=== PATIENT | male | born 1975 | race Caucasian/White ===

== ENCOUNTER 2018-07-22 14:44 | Inpatient (IN) ==
--- NOTE | 2018-07-22 16:04 | XRay Report ---
INDICATION: Flulike symptoms TECHNIQUE: AP chest x-ray,portable upright COMPARISON: None FINDINGS:Lungs are negative. No parenchymal infiltrate or mass. Size and vascularity are normal. Delores and mediastinum are negative. No pleural fluid. IMPRESSION: Negative AP chest x-ray Interpreted and Authenticated by: Harjit Aparicio 07/22/18
[2018-07-22] MEDS ORDERED: HYDROmorphone 2 MG/ML VIAL IV ONE (16:06)
[2018-07-22] MEDS ORDERED: LACTATED RINGERS 1,000 ML IV ONE ×2 (16:07→16:08)
[2018-07-22 16:11] LABS: Basophils # (Auto) 0.1 K/mcL (0.0-0.3); Basophils % (Auto) 0.8 % (0.0-2.0); Eosinophils # (Auto) 0.5 K/mcL (0.0-0.7); Eosinophils % (Auto) 3.1 % (0.0-7.0); Lymphocytes # (Auto) 3.9 K/mcL (1.5-4.8); Lymphocytes % (Auto) 24.2 % (15.5-49.0); Mean Cell Volume 86.6 fL (80.0-100.0); Mean Corpuscular HGB Conc 31.2 g/dL (31.0-36.0); Monocytes # (Auto) 1.1 K/mcL (0.1-0.9); Monocytes % (Auto) 6.9 % (1.0-12.0); Platelet Count 488 K/mcL (140-440); RBC 4.31 M/mcL (4.50-5.90); Red Cell Distribution Width 16.3 % (11.5-14.5)
[2018-07-22 16:36] LABS: ALT/SGPT 50 U/l (0-40); Albumin 3.1 gm/dL (3.2-5.2); Albumin/Globulin Ratio 0.6 (1.0-2.3); Alkaline Phosphatase 100 U/L (39-117); Blood Urea Nitrogen 27 mg/dl (6-20)
[2018-07-22] MEDS ORDERED: cefTRIAXone 1 GM VIAL IV ONE (16:39)
--- NOTE | 2018-07-22 17:19 | Emergency Department Note ---
Weakness HPI - General Chief complaint: Weakness Stated complaint: Weak, Cough and cold, tired, sore throat Time Seen by Provider: 07/22/18 14:47 Source: patient Mode of arrival: ambulatory Limitations: no limitations - History of Present Illness HPI Narrative: 43-year-old male in ED as advised from wound care. Patient had gone to wound care for weekly evaluation of his left lower extremity which is currently cast due to pressure ulcer. Patient's blood pressure was 97/55. Patient states normally he is systolic is in the 130s. Patient also had right [id number] amputation due to wound infection into the bone. Patient was placed into a care center and discharged May 2018. Patient states he did have upper respiratory infection last 2 and half weeks and excessive coughing, no temperatures, no changes in bowel and bladder. Patient states he did feel better today than he has been the last few weeks. Patient states he is getting a migraine. Patient states last time he was on antibiotics was in May. Patient does have health history PTSD, depression, anxiety, hypertension, type 2 diabetes on insulin. Onset (ago): hour(s) (1) Migration: none Severity: mild Improves with: rest Worsens with: exertion Context: recent illness Associated symptoms: Reports: headaches. Denies: confusion, diaphoresis, fever/chills, loss of appetite, nausea/vomiting, shortness of breath - Related Data Home Medications Medication Instructions Recorded Confirmed Acetaminophen [Pain Reliever] 1,000 mg PO BID 06/04/17 07/24/18 Aspirin [Lo-Dose Aspirin EC] 81 mg PO DAILY 06/04/17 07/24/18 Lactobacillus Acidophilus 0.5 mg PO DAILY 06/04/17 07/24/18 [Acidophilus Probiotic] Loratadine [Loradamed] 10 mg PO DAILYP PRN 06/04/17 07/24/18 Omeprazole [Prilosec] 40 mg PO ACB 06/04/17 07/23/18 Timolol 0.5% Ophth Drops [Timoptic 1 gtt OU BID 06/04/17 07/23/18 0.5% Ophth Drops] Vitamin D3 1,000 unit PO DAILY 06/04/17 07/24/18 albuterol sulfate HFA 90 2 puff INHALATION Q6H PRN 03/23/18 07/24/18 mcg/actuation aerosol inhaler atorvastatin 80 mg tablet 80 mg PO HS 03/23/18 07/23/18 cyclobenzaprine 10 mg tablet 10 mg PO HS tab 03/23/18 07/23/18 gabapentin 300 mg capsule 300 mg PO TID cap 03/23/18 07/23/18 insulin aspart U- 100 100 unit/mL See Rx Instructions SUB-Q .COMPLEX 03/23/18 07/23/18 subcutaneous solution lisinopril 20 mg tablet 20 mg PO QDAY 03/23/18 07/23/18 metformin 1,000 mg tablet 1,000 mg PO BIDCC tab 03/23/18 07/23/18 pioglitazone 15 mg tablet 15 mg PO QDAY 03/23/18 07/23/18 prazosin 2 mg capsule 2 mg PO HS cap 03/23/18 07/22/18 promethazine 25 mg tablet 25 mg PO Q8HP PRN tab 03/23/18 07/23/18 topiramate 100 mg tablet 100 mg PO QDAY tab 03/23/18 07/23/18 venlafaxine ER 75 mg 225 mg PO DAILY cap 03/23/18 07/23/18 capsule,extended release 24 hr fluticasone 110 mcg/actuation HFA 2 puff INHALATION BID 04/28/18 07/23/18 aerosol inhaler insulin detemir (U- 100) 100 60 unit SUB-Q BID ml 04/28/18 07/23/18 unit/mL subcutaneous solution liraglutide 0.6 mg/0.1 mL (18 mg/3 1.8 mg SUB-Q QDAY ml 04/28/18 07/23/18 mL) subcutaneous pen injector loperamide 2 mg capsule 2 mg PO Q2-4H PRN 04/28/18 07/23/18 metoclopramide 10 mg tablet 15 mg PO TIDAC tab 04/28/18 07/23/18 potassium chloride ER 10 mEq 10 meq PO QAMCC 04/28/18 07/23/18 tablet,extended release trazodone 100 mg tablet 100 mg PO QHS tab 04/28/18 07/23/18 Acetaminophen [Tylenol Arthritis] 650 mg PO Q6HP PRN 07/22/18 07/24/18 HYDROcodone/APAP 10/325MG [[place] 1 tab PO BIDP PRN 07/23/18 07/23/18 10-325Mg] Naproxen [Naprosyn] 500 mg PO BIDCC 07/23/18 07/23/18 Previous Rx's Medication Instructions Recorded Amoxicillin/Potassium Clav 875 mg PO Q12H #10 tab 07/25/18 [Augmentin] Lactobacillus [Culturelle] 1 cap PO BID #60 cap 07/25/18 Allergies Allergy/AdvReac Type Severity Reaction Status Date / Time sulfamethoxazole Allergy Mild Rash Verified 07/22/18 14:50 [From Bactrim] trimethoprim [From Bactrim] Allergy Mild Rash Verified 07/22/18 14:50 fluticasone [From Flonase] AdvReac Mild Dry Mucus Verified 07/22/18 14:50 Membranes Review of Systems All systems ED: reviewed and negative except as stated. Past Medical History - Past Medical History PMFSH Narrative: All Active Problems (Last Reviewed 04/28/18 @ 13:26 by Angélica Echols RN) Osteomyelitis (Chronic) Vitamin D deficiency (Chronic) GERD (gastroesophageal reflux disease) (Chronic) Insomnia (Chronic) Hyperlipidemia (Chronic) Hypertension (Chronic) Anemia (Chronic) Constipation (Chronic) Asthma (Chronic) Backache (Chronic) Migraine (Chronic) Seasonal allergies (Chronic) Viral syndrome (Chronic) Iron deficiency (Chronic) Anxiety (Chronic) Depressive disorder (Chronic) Chronic pain syndrome (Chronic) Otitis media (Chronic) Pharyngitis (Chronic) URI (upper respiratory infection) (Chronic) Allergic rhinitis (Chronic) Gastroparesis (Chronic) Chronic obstructive pulmonary disease (COPD) (Chronic) Abscess (Chronic) Dry skin (Chronic) Headache (Chronic) Abrasion (Chronic) Psoriasis (Chronic) Sleep apnea (Chronic) Substance abuse (Chronic) Edema (Chronic) Vitamin B12 deficiency (Chronic) Type II diabetes mellitus (Chronic) Ulceration of below knee amputation stump (Chronic) Pain in right lower leg (Chronic) S/P BKA (below knee amputation) (Chronic) Chronic ulcer of leg (Chronic) Migraine headache without aura (Chronic) Migraine (Chronic) Cellulitis of right leg (Chronic) Abscess of right lower extremity (Chronic) Hematoma (Chronic) Past Surgical History (Last Reviewed 04/28/18 @ 13:26 by Angélica Echols RN) History of cataract surgery (Chronic) History of cholecystectomy (Chronic) History of leg amputation (Chronic) Family History (Last Reviewed 04/28/18 @ 13:26 by Angélica Echols RN) Mother Cancer Diabetes Kidney disease FH: mental illness Father Heart disease Hypertension Medical history: Reports: DM (Type II, insulin using.), hypertension. Denies: cancer, CVA, myocardial infarction (Although he is uncertain and thinks maybe), thyroid disease, TIA Psychiatric history: Reports: anxiety, depression Surgical history ED: Reports: orthopedic, other (Below the knee amputation, right) - Social History smoking status: Current every day smoker Alcohol use: Reports: None Drug use: Reports: none. Denies: marijuana Physical Exam Limitations: no limitations General appearance: alert, in no apparent distress Head: atraumatic, normocephalic, normal inspection Eye: Present: normal appearance, PERRL, EOMI. Absent: conjunctival injection ENT: normal oropharynx, mucous membranes moist, TM's normal bilaterally, normal external ear exam Neck: Present: normal inspection. Absent: tenderness, lymphadenopathy Chest: Present: normal inspection, symmetric chest wall rise. Absent: te nderness Respiratory: Present: normal lung sounds bilaterally. Absent: respiratory distress, rales/crackles, wheezes Cardiovascular: Present: tachycardia. Absent: systolic murmur, diastolic murmur Abdominal: Present: soft, normal bowel sounds. Absent: distention, tenderness, guarding, rebound, rigidity Extremities: Present: other (right [id number] amputee, left leg and casts with walking boot) Neurological: Present: alert, oriented X3, CN II-XII intact Psychiatric: Present: normal affect, normal mood. Absent: depressed, agitated, anxious Skin: Present: warm, dry, intact, pallor. Absent: cyanosis, diaphoresis, erythema Course Vital Signs Temperature 97.5 F 07/22/18 14:46 Pulse Rate 112 H 07/22/18 14:46 Respiratory Rate 20 07/22/18 14:46 Blood Pressure 89/57 07/22/18 14:46 Pulse Oximetry (%) 92 07/22/18 14:46 Temperature 98.8 F 07/25/18 12:03 Pulse Rate 79 07/25/18 12:03 Respiratory Rate 18 07/25/18 12:03 Blood Pressure 132/80 07/25/18 12:03 Pulse Oximetry (%) 94 07/25/18 12:03 Weakness - MDM Narrative Medical decision making narrative: Patient is generally worked up for hypotension. Provided patient 2 L lactated Ringer's. WBC came back elevated changed into sepsis protocol. WBC 16.3 patient anemic BUN 27 creatinine 1.7 which is decreased for patient from April when it was 59/1.3. Patient AST 55, ALT 50 . Patient per calcitonin 0.39 PT/INR 14.3/ 1.1 and also provided 1 g Rocephin after blood cultures obtained. Third liter lactated Ringer's placed at 500 ml/hour. Patient's blood pressure coming up 125/74 - Lab Data Result diagrams: 07/24/18 03:21 07/25/18 03:59 Lab Results 07/22/18 07/22/18 07/22/18 Range/Units 15:23 15:28 15:28 WBC 16.3 H (4.5-11.0) K/mcL RBC 4.31 L (4.50-5.90) M/mcL Hgb 11.6 L (13.5-16.5) g/dL Hct 37.3 L (41.0-55.0) % MCV 86.6 (80.0-100.0) fL MCH 27.0 (26.0-34.0) pg MCHC 31.2 (31.0-36.0) g/dL RDW 16.3 H (11.5-14.5) % Plt Count 488 H (140-440) K/mcL MPV 8.8 (7.4-10.4) fL Gran % 65.0 (38.0-78.0) % Lymph % (Auto) 24.2 (15.5-49.0) % Merrick % (Auto) 6.9 (1.0-12.0) % Eos % (Auto) 3.1 (0.0-7.0) % Baso % (Auto) 0.8 (0.0-2.0) % Gran # 10.6 H (1.8-8.0) K/mcL Lymph # (Auto) 3.9 (1.5-4.8) K/mcL Merrick # (Auto) 1.1 H (0.1-0.9) K/mcL Eos # (Auto) 0.5 (0.0-0.7) K/mcL Baso # (Auto) 0.1 (0.0-0.3) K/mcL PT (11.9-14.5) sec INR (0.9-1.1) VBG Lactic Acid (0.5-2.0) mmol/L Sodium 136 (133-145) mmol/L Potassium 4.9 (3.3-5.1) mmol/L Chloride 102 (96-108) mmol/L Carbon Dioxide 20 L (22-30) mmol/L Anion Gap 14.0 (8-16) BUN 27 H (6-20) mg/dl Creatinine 1.7 H (0.7-1.2) mg/dl GFR Calculation 48 Glucose 205 H (70-105) mg/dL Calcium 9.1 (8.6-10.4) mg/dl Total Bilirubin 0.2 (0.0-1.0) mg/dL AST 55 H (0-37) U/l ALT 50 H (0-40) U/l Alkaline Phosphatase 100 (39-117) U/L Total Protein 8.2 (5.9-8.4) gm/dL Albumin 3.1 L (3.2-5.2) gm/dL Globulin 5.1 H (2.2-3.7) gm/dL Albumin/Globulin Ratio 0.6 L (1.0-2.3) Procalcitonin 0.39 (<0.10) ng/mL 07/22/18 07/22/18 Range/Units 15:29 17:02 WBC (4.5-11.0) K/mcL RBC (4.50-5.90) M/mcL Hgb (13.5-16.5) g/dL Hct (41.0-55.0) % MCV (80.0-100.0) fL MCH (26.0-34.0) pg MCHC (31.0-36.0) g/dL RDW (11.5-14.5) % Plt Count (140-440) K/mcL MPV (7.4-10.4) fL Gran % (38.0-78.0) % Lymph % (Auto) (15.5-49.0) % Merrick % (Auto) (1.0-12.0) % Eos % (Auto) (0.0-7.0) % Baso % (Auto) (0.0-2.0) % Gran # (1.8-8.0) K/mcL Lymph # (Auto) (1.5-4.8) K/mcL Merrick # (Auto) (0.1-0.9) K/mcL Eos # (Auto) (0.0-0.7) K/mcL Baso # (Auto) (0.0-0.3) K/mcL PT 14.3 (11.9-14.5) sec INR 1.1 (0.9-1.1) VBG Lactic Acid 3.0 H (0.5-2.0) mmol/L Sodium (133-145) mmol/L Potassium (3.3-5.1) mmol/L Chloride (96-108) mmol/L Carbon Dioxide (22-30) mmol/L Anion Gap (8-16) BUN (6-20) mg/dl Creatinine (0.7-1.2) mg/dl GFR Calculation Glucose (70-105) mg/dL Calcium (8.6-10.4) mg/dl Total Bilirubin (0.0-1.0) mg/dL AST (0-37) U/l ALT (0-40) U/l Alkaline Phosphatase (39-117) U/L Total Protein (5.9-8.4) gm/dL Albumin (3.2-5.2) gm/dL Globulin (2.2-3.7) gm/dL Albumin/Globulin Ratio (1.0-2.3) Procalcitonin (<0.10) ng/mL Disposition Pt seen by [employer]CH[employer]IC/PA only: No (Alexis) Clinical Impression: Sepsis Qualifiers: Sepsis type: sepsis due to unspecified organism Qualified Code(s): A41.9 - Sepsis, unspecified organism Disposition: Xfer As Inpt ([facility]) Condition: Fair Time of Disposition: 15:24
[2018-07-22] MEDS: LACTATED RINGERS 1,000 ML IV SCH ×2 (17:20→19:08)
[2018-07-22] MEDS ORDERED: PIPERACILLIN SODIUM/TAZOBACTAM 3.375 GM in DEXTROSE 5% IN WATER 50 ML IV ONE (17:41)
--- NOTE | 2018-07-22 18:06 | Internal Med History&Physical ---
Medical - H&P: [facility] Patient information: Note initiated : 07/22/18 at 5:57 pm Service Date, if different from initiated Date: [] Patient: Roberto Johnson a 43 y/o M admitted on for Weak, Cough and Cold, Tired, Sorethroat. Chief Complaint: [] Chief complaint: Low blood pressure/worsening wound History of present illness: Mr. Johnson is a 43 year old M with a known history of diabetes mellitus type 2, suboptimal outpatient control with extensive peripheral vascular disease/history of right leg below knee amputation and left foot diabetic wound which was placed in a cast 2 weeks ago due to underlying callus and to offload to prevent infection. He has has been undergoing wound care by Dr. Cummings for a callus. However over the last couple of weeks patient has been experiencing URI sympt oms with cough, chills, weakness and came into the ER due to excessive fatigue weakness and inability to function. He denies sick contact. He denies productive yellow sputum, sinus symptoms. Initial workup in the ER was significant for hypotension/elevated white count of 16.3 and workup consistent with a sepsis with elevated lactic acid at 3. Exact source was unclear given negative chest x-ray. Cultures were drawn and hospitalist service was consulted for evaluation. Patient received 2 L of crystalloids with resultant improvement in systolics to 100. At the time of evaluation patient is alert oriented. He is in minimal discomfort. He was able to write answers to most of the questions history as above. He denies chest pain shortness of breath but endorses a cough weakness fatigue, denies myalgia, headache photophobia, diarrhea or dysuria. Review of systems 10 point review systems was performed and is negative except was discussed above Medical - H&P: PMH Medical history: Osteomyelitis (Chronic) Right BKA stump Vitamin D deficiency (Chronic) GERD (gastroesophageal reflux disease) (Chronic) Insomnia (Chronic) Hyperlipidemia (Chronic) Hypertension (Chronic) Anemia (Chronic) Constipation (Chronic) Asthma (Chronic) Backache (Chronic) Migraine (Chronic) Seasonal allergies (Chronic) Viral syndrome (Chronic) Iron deficiency (Chronic) Anxiety (Chronic) Depressive disorder (Chronic) Chronic pain syndrome (Chronic) Otitis media (Chronic) Pharyngitis (Chronic) URI (upper respiratory infection) (Chronic) Allergic rhinitis (Chronic) Gastroparesis (Chronic) Chronic obstructive pulmonary disease (COPD) (Chronic) Abscess (Chronic) Dry skin (Chronic) Headache (Chronic) Abrasion (Chronic) Psoriasis (Chronic) Sleep apnea (Chronic) Substance abuse (Chronic) Edema (Chronic) Vitamin B12 deficiency (Chronic) Type II diabetes mellitus (Chronic) Ulceration of below knee amputation stump (Chronic) Surgical History History of cataract surgery (Chronic) History of cholecystectomy (Chronic) History of leg below knee amputation (Chronic) Right History of wisdom tooth extraction (Chronic) Family History Mother Cancer Diabetes Kidney disease FH: mental illness Father Heart disease Hypertension Social History smoking status: Former smoker quit date: 03/21/18 does not drink No history of substance abuse Medical - H&P: Meds Home Medications Medication Instructions Recorded Confirmed Type Acetaminophen [Pain Reliever] 1,000 mg PO BID 06/04/17 04/28/18 History Aspirin [Lo-Dose Aspirin EC] 81 mg PO DAILY 06/04/17 04/28/18 History Lactobacillus Acidophilus 0.5 mg PO DAILY 06/04/17 04/28/18 History [Acidophilus Probiotic] Loratadine [Loradamed] 10 mg PO 06/04/17 04/28/18 History Omeprazole [PriLOSEC] 40 mg PO ACB 06/04/17 07/23/18 History Timolol 0.5% Ophth Drops [Timoptic 1 gtt OU BID 06/04/17 07/23/18 History 0.5% Ophth Drops] Vitamin D3 1,000 unit PO DAILY 06/04/17 04/28/18 History albuterol sulfate HFA 90 2 puff INHALATION Q6H PRN 03/23/18 04/28/18 History mcg/actuation aerosol inhaler atorvastatin 80 mg tablet 80 mg PO HS 03/23/18 07/23/18 History chlorthalidone 25 mg tablet 25 mg PO QDAY 03/23/18 07/23/18 History cyclobenzaprine 10 mg tablet 10 mg PO HS tab 03/23/18 07/23/18 History gabapentin 300 mg capsule 300 mg PO TID cap 03/23/18 07/23/18 History insulin aspart U- 100 100 unit/mL See Rx Instructions SUB-Q .COMPLEX 03/23/18 07/23/18 History subcutaneous solution lisinopril 20 mg tablet 20 mg PO QDAY 03/23/18 07/23/18 History metformin 1,000 mg tablet 1,000 mg PO BIDCC tab 03/23/18 07/23/18 History pioglitazone 15 mg tablet 15 mg PO QDAY 03/23/18 07/23/18 History prazosin 2 mg capsule 2 mg PO HS cap 03/23/18 07/22/18 History promethazine 25 mg tablet 25 mg PO Q8HP PRN tab 03/23/18 07/23/18 History topiramate 100 mg tablet 100 mg PO QDAY tab 03/23/18 07/23/18 History venlafaxine ER 75 mg 225 mg PO DAILY cap 03/23/18 07/23/18 History capsule,extended release 24 hr doxycycline hyclate 100 mg capsule 100 mg PO BID #60 cap 04/08/18 07/22/18 Rx fluticasone 110 mcg/actuation HFA 2 puff INHALATION BID 04/28/18 07/23/18 History aerosol inhaler insulin detemir (U- 100) 100 60 unit SUB-Q BID ml 04/28/18 07/23/18 History unit/mL subcutaneous solution liraglutide 0.6 mg/0.1 mL (18 mg/3 1.8 mg SUB-Q QDAY ml 04/28/18 07/23/18 History mL) subcutaneous pen injector loperamide 2 mg capsule 2 mg PO Q2-4H PRN 04/28/18 07/23/18 History metoclopramide 10 mg tablet 15 mg PO TIDAC tab 04/28/18 07/23/18 History potassium chloride ER 10 mEq 10 meq PO QAMCC 04/28/18 07/23/18 History tablet,extended release trazodone 100 mg tablet 100 mg PO QHS tab 04/28/18 07/23/18 History Acetaminophen [Tylenol Arthritis] 650 mg PO Q6HP PRN 07/22/18 History HYDROcodone/APAP 10/325MG [[place] 1 tab PO BIDP PRN 07/23/18 07/23/18 History 10-325Mg] Naproxen [Naprosyn] 500 mg PO BIDCC 07/23/18 07/23/18 History Allergies Allergy/AdvReac Type Severity Reaction Status Date / Time sulfamethoxazole Allergy Mild Rash Verified 07/22/18 14:50 [From Bactrim] trimethoprim [From Bactrim] Allergy Mild Rash Verified 07/22/18 14:50 fluticasone [From Flonase] AdvReac Mild Dry Mucus Verified 07/22/18 14:50 Membranes Medical - H&P: Exam - Constitutional Vitals: Temp Pulse Resp BP Pulse Ox 97.5 F 105 H 16 125/74 90 07/22/18 14:46 07/22/18 16:23 07/22/18 16:51 07/22/18 16:51 07/22/18 16:51 General appearance: morbidly obese, no acute distress Exam: Alert oriented Head normocephalic Neck lymphadenopathy S1-S2 regular rhythm Oral cavity dry no ear nose discharge Diminished breath sounds bases Abdomen soft nontender Left BKA Right foot cast Extensive excoriation/xerosis upper and lower extremities Skin otherwise no suspicious lesion psych alert cooperative Neuro normal heart function Medical - H&P: Reslt - Labs CBC & Chem 7: 07/23/18 03:27 07/23/18 03:27 Labs: Short CBC 07/22/18 Range/Units 15:28 WBC 16.3 H (4.5-11.0) K/mcL Hgb 11.6 L (13.5-16.5) g/dL Hct 37.3 L (41.0-55.0) % Plt Count 488 H (140-440) K/mcL BMP 07/22/18 15:28 Sodium 136 Potassium 4.9 Chloride 102 Carbon Dioxide 20 L BUN 27 H Creatinine 1.7 H Glucose 205 H Calcium 9.1 Liver Function 07/22/18 Range/Units 15:28 Total Bilirubin 0.2 (0.0-1.0) mg/dL AST 55 H (0-37) U/l ALT 50 H (0-40) U/l Alkaline Phosphatase 100 (39-117) U/L Albumin 3.1 L (3.2-5.2) gm/dL Medical - H&P: A/P (1) Septic shock Current visit: Yes Status: Acute * Septic shock-exact source in question. Continue crystalloid/broad antibiotic coverage/pressors if indicated, venous lactate trending. ICU admission. * Diabetic left lower extremity cast/probable cellulitis-patient was evaluated by wound care. Consider CT to rule out deep-seated infection. * Acute renal failure-secondary to sepsis and endorgan dysfunction. Creatinine 1.7 * Insulin-dependent diabetes-continue basal prandial insulin. * Hypertension-medication on hold until septic shock resolved * COPD-continue bronchodilators * Anxiety disorder continue venlafaxine * Diabetic neuropathy continue gabapentin * Chronic pain/spasm-20 seconds appearing * History of CAD-continue aspirin/statin * Hyperlipidemia-continue statin * History of glaucoma on timolol * GERD continue PPI * DNR * Prophylaxis heparin Plan * Intensive care unit admission, high risk mortality given multiorgan dysfunction/Mower II score 17 * Consider CT lower extremity to rule out deep-seated infection * Broad antibiotic coverage * Pancultures/sepsis management guidelines/venous lactate trending/crystalloids * Wound care consult
[2018-07-22] MEDS ORDERED: NOREPINEPHRINE BITARTRATE 16 MG in 0.9 % SODIUM CHLORIDE 234 ML IV SCH (20:22)
[2018-07-22] MEDS ORDERED: 0.9 % SODIUM CHLORIDE 1,000 ML IV SCH (20:22)
[2018-07-22] MEDS ORDERED: VANCOMYCIN PER PHARMACY IV ONE (20:22)
[2018-07-22] MEDS ORDERED: ONDANSETRON 4 MG/2 ML VIAL IV PRN (20:22)
[2018-07-22] MEDS ORDERED: HYDROmorphone 2 MG/ML VIAL IV PRN (20:22)
[2018-07-22] MEDS ORDERED: DEXTROSE 31 GM ORAL.SUSP PO PRN (20:22)
[2018-07-22] MEDS ORDERED: ACETAMINOPHEN 325 MG TABLET PO PRN (20:22)
[2018-07-22] MEDS ORDERED: POTASSIUM CHLORIDE 20 MEQ PACKET PO PRN (20:22)
[2018-07-22] MEDS ORDERED: NITROGLYCERIN 0.4 MG TAB.SUBL SL PRN (20:22)
[2018-07-22] MEDS ORDERED: MAGNESIUM HYDROXIDE 30 ML ORAL.SUSP PO PRN (20:22)
[2018-07-22] MEDS ORDERED: DEXTROSE 50% 50 ML VIAL IV PRN (20:22)
[2018-07-22] MEDS ORDERED: MAGNESIUM SULFATE 2 GM/50 ML BAG IV PRN (20:22)
[2018-07-22] MEDS: VANCOMYCIN 1,500 MG in 0.9 % SODIUM CHLORIDE 500 ML IV SCH (20:58)
[2018-07-22] MEDS ORDERED: SENNOSIDES/DOCUSATE SODIUM 1 TAB TABLET PO SCH (21:00)
[2018-07-22] MEDS: DOCUSATE SODIUM 100 MG CAPSULE PO SCH (22:25)
[2018-07-22] MEDS: CYANOCOBALAMIN (VITAMIN B-12) 500 MCG TABLET PO SCH (22:25)
[2018-07-22] MEDS: INSULIN LISPRO 1 UNIT/0.01 ML UNIT SQ SCH (22:26)
[2018-07-22] MEDS: HEPARIN 5,000 UNIT/ML VIAL SQ SCH (22:26)
[2018-07-22] MEDS: 0.9 % SODIUM CHLORIDE 10 ML SYRINGE IV SCH (22:27)
[2018-07-23] MEDS: PIPERACILLIN SODIUM/TAZOBACTAM 3.375 GM in DEXTROSE 5% IN WATER 50 ML IV SCH ×5 (00:30→23:21)
[2018-07-23 05:07] LABS: Mean Cell Volume 87.8 fL (80.0-100.0); Mean Corpuscular HGB Conc 31.5 g/dL (31.0-36.0); Platelet Count 392 K/mcL (140-440); Red Cell Distribution Width 16.3 % (11.5-14.5)
[2018-07-23 05:23] LABS: ALT/SGPT 40 U/l (0-40); Albumin 2.5 gm/dL (3.2-5.2); Albumin/Globulin Ratio 0.6 (1.0-2.3); Alkaline Phosphatase 79 U/L (39-117); Bilirubin,Direct < 0.2 mg/dL (0.0-0.3); Blood Urea Nitrogen 23 mg/dl (6-20); Gamma Glutamyl Transpeptidase 71 U/L (8-61); Uric Acid 5.6 mg/dL (2.5-8.0)
[2018-07-23] MEDS: 0.9 % SODIUM CHLORIDE 10 ML SYRINGE IV SCH ×3 (05:57→22:16)
[2018-07-23] MEDS ORDERED: VANCOMYCIN PER PHARMACY IV SCH ×2 (06:15→11:07)
[2018-07-23 06:26] LABS: Appearance,Urine CLEAR; Bilirubin,Urine NEG (NEG); Color,Urine YELLOW; Glucose,Urine (UA) NEGATIVE (NEG); Leukocyte Esterase,Urine NEG /uL (NEG); Protein,Urine NEG (NEG); Urine Blood NEG mg/dL (<0.03); Urobilinogen,Urine NEG (NEG)
[2018-07-23 06:49] LABS: Anisocytosis 1+ (NONE SEEN); Band Neutrophils % 1 % (0-10); Basophils % (Manual) 1 % (0-2); Eosinophils % (Manual) 4 % (0-7); Lymphocytes % 22 % (15-49); Monocytes % (Manual) 12 % (1-12); Platelet Estimate NORMAL (NORMAL); RBC Morphology ABNORM (NORMAL); Segmented Neutrophils % 60 % (38-78)
--- NOTE | 2018-07-23 07:10 | Emergency Department Note ---
ED Note Addendum Note Addendum: I reviewed this case of Lorraine Craig EASTON. I agree with her evaluation management documentation. In particular note concern for sepsis. We discussed the need for admission
[2018-07-23] MEDS ORDERED: NOREPINEPHRINE BITARTRATE 16 MG in 0.9 % SODIUM CHLORIDE 234 ML IV PRN ×2 (07:45→11:07)
[2018-07-23] MEDS: DOCUSATE SODIUM 100 MG CAPSULE PO SCH ×2 (07:55→20:54)
[2018-07-23] MEDS ORDERED: POTASSIUM CHLORIDE 10 MEQ TABLET PO SCH (08:00)
[2018-07-23] MEDS: INSULIN LISPRO 1 UNIT/0.01 ML UNIT SQ SCH ×4 (08:12→21:46)
[2018-07-23] MEDS ORDERED: FLUTICASONE HFA 110MCG INHALER INH SCH (09:00)
[2018-07-23] MEDS ORDERED: GABAPENTIN 300 MG CAPSULE PO SCH (09:00)
[2018-07-23] MEDS ORDERED: sitaGLIPtin 100 MG TABLET PO SCH (09:00)
[2018-07-23] MEDS ORDERED: MULTIVIT,THER IRON,CA,FA & MIN 1 TABLET PO SCH (09:00)
[2018-07-23] MEDS: VANCOMYCIN 1,500 MG in 0.9 % SODIUM CHLORIDE 500 ML IV SCH (09:00)
[2018-07-23] MEDS ORDERED: ACETAMINOPHEN 1000 MG PO SCH (09:00)
[2018-07-23] MEDS ORDERED: INSULIN GLARGINE, HUMAN 1 UNIT/0.01 ML SQ SCH (09:00)
[2018-07-23] MEDS: CYANOCOBALAMIN (VITAMIN B-12) 500 MCG TABLET PO SCH ×2 (10:05→19:58)
[2018-07-23] MEDS: HEPARIN 5,000 UNIT/ML VIAL SQ SCH ×2 (10:05→20:57)
--- NOTE | 2018-07-23 11:03 | Internal Med Progress Note ---
Medical - PN: Subj Patient information: Note initiated : 07/23/18 at 11:00 am Service Date, if different from initiated Date: [] Patient: Roberto Johnson a 43 y/o M admitted on 07/22/18 for Weak, Cough and Cold, Tired, Sorethroat. Chief Complaint: [] Interval history: Mr. Johnson is a 43 year old M with a known history of diabetes mellitus type 2, suboptimal outpatient control with extensive peripheral vascular disease/history of right leg below knee amputation and left foot diabetic wound which was placed in a cast 2 weeks ago due to underlying callus and to offload to prevent infection. He has has been undergoing wound care by Dr. Cummings for a callus. However over the last couple of weeks patient has been experiencing URI symptoms with cough, chills, weakness and came into the ER due to excessive fatigue weakness and inability to function. He denies sick contact. He denies productive yellow sputum, sinus symptoms. Initial workup in the ER was significant for hypotension/elevated white count of 16.3 and workup consistent with a sepsis with elevated lactic acid at 3. Exact source was unclear given negative chest x-ray. Cultures were drawn and hospitalist service was consulted for evaluation. Patient received 2 L of crystalloids with resultant improvement in systolics to 100. At the time of evaluation patient is alert oriented. He is in minimal discomfort. He was able to write answers to most of the questions history as above. He denies chest pain shortness of breath but endorses a cough weakness fatigue, denies myalgia, headache photophobia, diarrhea or dysuria. 07/23-patient doing well this morning. No overnight events. Lactic acid improved. White count downtrending. Stable hemodynamics. Transfer to telemetry. No fever chills nausea vomiting or concerns. Did not require vasopressors. No other concerns expressed to nursing staff. - Constitutional Vitals: Vital Signs Temp Pulse Resp BP Pulse Ox 97.1 F 90 23 H 155/84 95 07/23/18 08:02 07/23/18 06:00 07/23/18 08:02 07/23/18 08:02 07/23/18 08:02 Period Temp Pulse Resp BP Sys/Love Pulse Ox Last 24 Hr 97.1 F-98.1 F 86-112 14-25 89-175/53-84 87-100 Intake and Output 07/22/18 07/23/18 07/23/18 21:59 05:59 13:59 Intake Total 3836 670 600 Output Total 1750 Balance 3836 -1080 600 Weight 252 lb Intake & Output: Intake & Output 07/22/18 07/23/18 07/23/18 21:59 05:59 13:59 Intake Total 3836 670 600 Output Total 1750 Balance 3836 -1080 600 Weight 252 lb Intake: IV 3716 550 600 Lactated Ringers 1,000 ml @ 500 3666 mls/hr IV .Q2H [facility] Rx#: [id number] Zosyn 3.375 gm In Dextrose 5% 50 50 50 in Water 50 ml @ 100 mls/hr IV Q6H [facility] Rx#:[id number] Vancomycin 1,500 mg In Sodium 500 500 Chloride 0.9% 500 ml @ 333.3 mls/hr IV Q12H [facility] Rx#: [id number] Oral 120 120 Output: Void Amount 1750 Other: Meal 2 jellos ice cream Percent of Meal Consumed 100% 100% Feeding Ability Independent Urine Color Dark Yellow Urine Odor Strong Stool Size Large Stool Color Brown Stool Consistency Soft Formed # Voids 1 1 # Bowel Movements 1 General appearance: morbidly obese Exam: Alert oriented Nonlabored breathing Chest clear No telemetry changes right BKA Left foot cast Medical - PN: Obj Da - Labs CBC & Chem 7: 07/23/18 03:27 07/23/18 03:27 Labs: Abnormal Lab Results 07/23/18 07/23/18 07/22/18 03:27 03:27 20:38 WBC 13.1 H RBC 3.70 L Hgb 10.2 L Hct 32.5 L RDW 16.3 H Plt Count Gran # [place] # (Auto) RBC Morphology Abnorm A Anisocytosis 1+ A ESR 101 H VBG Lactic Acid Carbon Dioxide 19 L BUN 23 H Creatinine 1.4 H Glucose 202 H Calcium 8.0 L Magnesium 1.4 L GGT 71 H AST ALT C-Reactive Protein Albumin 2.5 L Globulin 3.9 H Albumin/Globulin Ratio 0.6 L Triglycerides 203 H 07/22/18 07/22/18 07/22/18 20:38 17:02 15:28 WBC RBC Hgb Hct RDW Plt Count Gran # [place] # (Auto) RBC Morphology Anisocytosis ESR VBG Lactic Acid 3.0 H Carbon Dioxide 20 L BUN 27 H Creatinine 1.7 H Glucose 205 H Calcium Magnesium GGT AST 55 H ALT 50 H C-Reactive Protein 1.2 H Albumin 3.1 L Globulin 5.1 H Albumin/Globulin Ratio 0.6 L Triglycerides 07/22/18 15:28 WBC 16.3 H RBC 4.31 L Hgb 11.6 L Hct 37.3 L RDW 16.3 H Plt Count 488 H Gran # 10.6 H [place] # (Auto) 1.1 H RBC Morphology Anisocytosis ESR VBG Lactic Acid Carbon Dioxide BUN Creatinine Glucose Calcium Magnesium GGT AST ALT C-Reactive Protein Albumin Globulin Albumin/Globulin Ratio Triglycerides Meds: Medications Acetaminophen (Tylenol) 650 mg PO Q4-6HP PRN PRN Reason: PAIN/FEVER > 101 Aspirin (Aspirin) 81 mg PO DAILY [facility] Atorvastatin Calcium (Lipitor) 80 mg PO HS [facility] Cyanocobalamin (Vitamin B-12) 1,000 mcg PO BID [facility] Stop: 07/27/18 09:01 Last Admin: 07/23/18 10:05 Dose: 1,000 mcg Documented by: Cyclobenzaprine HCl (Flexeril) 10 mg PO HS [facility] Dextrose (Dextrose 50%) 0 ml IV UD PRN PRN Reason: Hypoglycemia Diagnostic Test (Pha) (Accu-Chek) 1 each FS ACHS [facility] Last Admin: 07/23/18 08:00 Dose: 1 each Documented by: Docusate Sodium (Colace) 100 mg PO BID [facility] Last Admin: 07/23/18 07:55 Dose: Not Given Documented by: Fluticasone Propionate (Flovent Hfa 110mcg) 2 puff INH BID [facility] Last Admin: 07/23/18 10:04 Dose: Not Given Documented by: Gabapentin (Neurontin) 300 mg PO TID [facility] Last Admin: 07/23/18 10:05 Dose: 300 mg Documented by: Glucose (Insta-Glucose) 15 gm PO PRN PRN PRN Reason: Hypoglycemia Heparin Sodium (Porcine) (Heparin) 5,000 unit SQ Q12 [facility] Last Admin: 07/23/18 10:05 Dose: 5,000 unit Documented by: Hydromorphone HCl (Dilaudid) 0 mg IV Q4HP PRN PRN Reason: PAIN LEVEL > 6 Last Admin: 07/22/18 21:00 Dose: 0.5 mg Documented by: Magnesium Sulfate (Magnesium Sulfate) 2 gm in 50 mls @ 50 mls/hr IV UD PRN PRN Reason: MG = or < 1.7 Last Infusion: 07/23/18 08:00 Dose: Infused Documented by: Sodium Chloride (Sodium Chloride 0.9%) 1,000 mls @ 50 mls/hr IV .Q20H [facility] Stop: 07/25/18 08:21 Last Admin: 07/22/18 20:59 Dose: 50 mls/hr Documented by: Piperacillin Sod/Tazobactam (Sod 3.375 gm/ Dextrose) 50 mls @ 100 mls/hr IV Q6H [facility] Last Infusion: 07/23/18 06:30 Dose: Infused Documented by: Vancomycin HCl 1,500 mg/ (Sodium Chloride) 500 mls @ 333.3 mls/hr IV Q12H [facility] Last Infusion: 07/23/18 10:44 Dose: Infused Documented by: Norepinephrine Bitartrate 16 (mg/ Sodium Chloride) 250 mls @ 9.38 mls/hr IV Q24HP PRN; Protocol PRN Reason: Hypotension Insulin Glargine (Lantus) 60 unit SQ BID [facility] Last Admin: 07/23/18 10:06 Dose: 60 units Documented by: Insulin Human Lispro (Humalog) 0 unit SQ [facility]; Protocol Last Admin: 07/23/18 08:12 Dose: 3 unit Documented by: Iron Carb/Multivit/[employer]/Folic Acid (Multivitamin W/Minerals) 1 tab PO DAILY [facility] Last Admin: 07/23/18 10:06 Dose: 1 tab Documented by: Magnesium Hydroxide (Milk Of Magnesia) 30 ml PO HSP PRN PRN Reason: Constipation Nitroglycerin (Nitrostat) 0.4 mg SL Q5M PRN PRN Reason: Chest Pain Ondansetron HCl (Zofran) 4 mg IV Q4-6HP PRN PRN Reason: Nausea And Vomiting Potassium Chloride (Klor-Con) 40 meq PO DAILYP PRN PRN Reason: K+ < 3.5 Potassium Chloride (Kdur) 10 meq PO BIDCC [facility] Last Admin: 07/23/18 10:06 Dose: 10 meq Documented by: Prazosin HCl (Minipress) 2 mg PO [facility] Senna/Docusate Sodium (Senna Plus Tablet) 1 tab PO [facility] Last Admin: 07/22/18 22:25 Dose: 1 tab Documented by: Sitagliptin Phosphate (Januvia) 100 mg PO DAILY [facility] Last Admin: 07/23/18 10:09 Dose: 100 mg Documented by: Sodium Chloride (Saline Flush) 10 ml IV Q8 [facility] Last Admin: 07/23/18 05:57 Dose: Not Given Documented by: Vancomycin HCl (Vancomycin Per Pharmacy) 1 order IV UD [facility] Medical - PN: A/P - Time Spent With Patient Total time spent is greater than 50% in coordination of care (as documented) at patient's floor/unit and/or counseling patient: 25 - 35 minutes (1) Septic shock Status: Acute Assessment and plan: * Septic shock-exact source still in question however dramatic response to crystalloid/antibiotics. Lactic acid normalized. Improved endorgan dysfunction. De-escalate antibiotics as indicated in the next 24-48 hours. Transfer to telemetry * Diabetic left lower extremity cast/probable cellulitis-patient was evaluated by wound care. Consider CT to rule out deep-seated infection. * Acute renal failure-secondary to sepsis and endorgan dysfunction. Creatinine 1.7 * Insulin-dependent diabetes-continue basal prandial insulin. * Hypertension-restart medications once septic shock resolved * COPD-continue bronchodilators * Anxiety disorder continue venlafaxine * Diabetic neuropathy continue gabapentin * Chronic pain/spasm-20 seconds appearing * History of CAD-continue aspirin/statin * Hyperlipidemia-continue statin * History of glaucoma on timolol * GERD continue PPI * DNR * Prophylaxis heparin Plan * Transfer to telemetry * Consider further imaging if persistent leukocytosis or signs of infection as source unclear as yet * DS plate antibiotic coverage in 24-48 hours * Await culture results Current Visit: Yes Medical - PN: Qual - VTE Deep Vein Thrombosis/Pulmonary Embolism Present on Admission: No
[2018-07-23] MEDS ORDERED: DEXTROSE 31 GM ORAL.SUSP PO PRN (11:07)
[2018-07-23] MEDS ORDERED: MAGNESIUM SULFATE 2 GM/50 ML BAG IV PRN (11:07)
[2018-07-23] MEDS ORDERED: HYDROmorphone 2 MG/ML VIAL IV PRN (11:07)
[2018-07-23] MEDS ORDERED: POTASSIUM CHLORIDE 20 MEQ PACKET PO PRN (11:07)
[2018-07-23] MEDS ORDERED: NITROGLYCERIN 0.4 MG TAB.SUBL SL PRN (11:07)
[2018-07-23] MEDS ORDERED: DEXTROSE 50% 50 ML VIAL IV PRN (11:07)
[2018-07-23] MEDS ORDERED: ACETAMINOPHEN 325 MG TABLET PO PRN (11:07)
[2018-07-23] MEDS ORDERED: MAGNESIUM HYDROXIDE 30 ML ORAL.SUSP PO PRN (11:07)
[2018-07-23] MEDS ORDERED: ONDANSETRON 4 MG/2 ML VIAL IV PRN (11:07)
[2018-07-23] MEDS: 0.9 % SODIUM CHLORIDE 1,000 ML IV SCH (11:09)
--- NOTE | 2018-07-23 13:49 | Internal Med Progress Note ---
Medical - PN: Subj Patient information: Note initiated : 07/23/18 at 1:45 pm Service Date, if different from initiated Date: [] Patient: Roberto Johnson a 43 y/o M admitted on 07/22/18 for Weak, Cough and Cold, Tired, Sorethroat. Chief Complaint: [] Interval history: Mr. Johnson is a 43 year old M with a known history of diabetes mellitus type 2, suboptimal outpatient control with extensive peripheral vascular disease/history of right leg below knee amputation and left foot diabetic wound which was placed in a cast 2 weeks ago due to underlying callus and to offload to prevent infection. He has has been undergoing wound care by Dr. Cummings for a callus. However over the last couple of weeks patient has been experiencing URI symptoms with cough, chills, weakness and came into the ER due to excessive fatigue weakness and inability to function. He denies sick contact. He denies productive yellow sputum, sinus symptoms. Initial workup in the ER was significant for hypotension/elevated white count of 16.3 and workup consistent with a sepsis with elevated lactic acid at 3. Exact source was unclear given negative chest x-ray. Cultures were drawn and hospitalist service was consulted for evaluation. Patient received 2 L of crystalloids with resultant improvement in systolics to 100. At the time of evaluation patient is alert oriented. He is in minimal discomfort. He was able to write answers to most of the questions history as above. He denies chest pain shortness of breath but endorses a cough weakness fatigue, denies myalgia, headache photophobia, diarrhea or dysuria. 07/23-patient doing well this morning. No overnight events. Lactic acid improved. White count downtrending. Stable hemodynamics. Transfer to telemetry. No fever chills nausea vomiting or concerns. Did not require vasopressors. No other concerns expressed to nursing staff. 07/24 - Constitutional Vitals: Vital Signs Temp Pulse Resp BP Pulse Ox 98.1 F 104 H 21 124/64 94 07/23/18 12:00 07/23/18 08:00 07/23/18 12:00 07/23/18 12:00 07/23/18 12:00 Period Temp Pulse Resp BP Sys/Love Pulse Ox Last 24 Hr 97.1 F-98.4 F 86-112 14-25 89-175/53-86 87-100 Intake and Output 07/22/18 07/23/18 07/23/18 21:59 05:59 13:59 Intake Total 3836 670 600 Output Total 1750 Balance 3836 -1080 600 Weight 114.305 kg Intake & Output: Intake & Output 07/22/18 07/23/18 07/23/18 21:59 05:59 13:59 Intake Total 3836 670 600 Output Total 1750 Balance 3836 -1080 600 Weight 114.305 kg Intake: IV 3716 550 600 Lactated Ringers 1,000 ml @ 500 3666 mls/hr IV .Q2H [facility] Rx#: [id number] Zosyn 3.375 gm In Dextrose 5% 50 50 50 in Water 50 ml @ 100 mls/hr IV Q6H [facility] Rx#:[id number] Vancomycin 1,500 mg In Sodium 500 500 Chloride 0.9% 500 ml @ 333.3 mls/hr IV Q12H [facility] Rx#: [id number] Oral 120 120 Output: Void Amount 1750 Other: Meal 2 jellos ice cream Percent of Meal Consumed 100% 100% Feeding Ability Independent Urine Color Dark Yellow Dark Yellow Urine Odor Strong Strong Stool Size Large Stool Color Brown Stool Consistency Soft Formed # Voids 1 1 # Bowel Movements 1 Exam: General: Alert, Awake, No acute Distress Eyes/N/T: EOMI, Head/Neck: neck supple, CV: RRR, No murmurs, Pulm: Clear b/l, no wheezing/rhonchi/rales Abd: soft, nontender, +BS x4 Ext: no clubbing/cyanosis . Right BKA, Left foot cast Neuro: Alert, no focal deficits, moves all extremities, Skin: warm/dry Medical - PN: Obj Da - Labs CBC & Chem 7: 07/23/18 03:27 07/23/18 03:27 Labs: Abnormal Lab Results 07/23/18 07/23/18 07/22/18 03:27 03:27 20:38 WBC 13.1 H RBC 3.70 L Hgb 10.2 L Hct 32.5 L RDW 16.3 H Plt Count Gran # [place] # (Auto) RBC Morphology Abnorm A Anisocytosis 1+ A ESR 101 H VBG Lactic Acid Carbon Dioxide 19 L BUN 23 H Creatinine 1.4 H Glucose 202 H Calcium 8.0 L Magnesium 1.4 L GGT 71 H AST ALT C-Reactive Protein Albumin 2.5 L Globulin 3.9 H Albumin/Globulin Ratio 0.6 L Triglycerides 203 H 07/22/18 07/22/18 07/22/18 20:38 17:02 15:28 WBC RBC Hgb Hct RDW Plt Count Gran # [place] # (Auto) RBC Morphology Anisocytosis ESR VBG Lactic Acid 3.0 H Carbon Dioxide 20 L BUN 27 H Creatinine 1.7 H Glucose 205 H Calcium Magnesium GGT AST 55 H ALT 50 H C-Reactive Protein 1.2 H Albumin 3.1 L Globulin 5.1 H Albumin/Globulin Ratio 0.6 L Triglycerides 07/22/18 15:28 WBC 16.3 H RBC 4.31 L Hgb 11.6 L Hct 37.3 L RDW 16.3 H Plt Count 488 H Gran # 10.6 H [place] # (Auto) 1.1 H RBC Morphology Anisocytosis ESR VBG Lactic Acid Carbon Dioxide BUN Creatinine Glucose Calcium Magnesium GGT AST ALT C-Reactive Protein Albumin Globulin Albumin/Globulin Ratio Triglycerides Meds: Medications Acetaminophen (Tylenol) 650 mg PO Q4-6HP PRN PRN Reason: PAIN/FEVER > 101 Aspirin (Aspirin) 81 mg PO DAILY [facility] Atorvastatin Calcium (Lipitor) 80 mg PO HS [facility] Cyanocobalamin (Vitamin B-12) 1,000 mcg PO BID [facility] Stop: 07/27/18 09:01 Cyclobenzaprine HCl (Flexeril) 10 mg PO HS [facility] Dextrose (Dextrose 50%) 0 ml IV UD PRN PRN Reason: Hypoglycemia Diagnostic Test (Pha) (Accu-Chek) 1 each FS ACHS [facility] Last Admin: 07/23/18 12:17 Dose: 1 each Documented by: Docusate Sodium (Colace) 100 mg PO BID [facility] Fluticasone Propionate (Flovent Hfa 110mcg) 2 puff INH BID [facility] Gabapentin (Neurontin) 300 mg PO TID [facility] Glucose (Insta-Glucose) 15 gm PO PRN PRN PRN Reason: Hypoglycemia Heparin Sodium (Porcine) (Heparin) 5,000 unit SQ Q12 [facility] Hydromorphone HCl (Dilaudid) 0 mg IV Q4HP PRN PRN Reason: PAIN LEVEL > 6 Magnesium Sulfate (Magnesium Sulfate) 2 gm in 50 mls @ 50 mls/hr IV UD PRN PRN Reason: MG = or < 1.7 Norepinephrine Bitartrate 16 (mg/ Sodium Chloride) 250 mls @ 9.38 mls/hr IV Q24HP PRN; Protocol PRN Reason: Hypotension Sodium Chloride (Sodium Chloride 0.9%) 1,000 mls @ 50 mls/hr IV .Q20H [facility] Stop: 07/25/18 08:21 Last Admin: 07/23/18 11:09 Dose: Not Given Documented by: Piperacillin Sod/Tazobactam (Sod 3.375 gm/ Dextrose) 50 mls @ 100 mls/hr IV Q6H [facility] Last Admin: 07/23/18 12:00 Dose: 100 mls/hr Documented by: Vancomycin HCl 1,500 mg/ (Sodium Chloride) 500 mls @ 333.3 mls/hr IV Q12H [facility] Insulin Glargine (Lantus) 60 unit SQ BID [facility] Insulin Human Lispro (Humalog) 0 unit SQ ACHS [facility]; Protocol Last Admin: 07/23/18 12:19 Dose: 3 unit Documented by: Iron Carb/Multivit/[place]/Folic Acid (Multivitamin W/Minerals) 1 tab PO DAILY [facility] Magnesium Hydroxide (Milk Of Magnesia) 30 ml PO HSP PRN PRN Reason: Constipation Nitroglycerin (Nitrostat) 0.4 mg SL Q5M PRN PRN Reason: Chest Pain Ondansetron HCl (Zofran) 4 mg IV Q4-6HP PRN PRN Reason: Nausea And Vomiting Potassium Chloride (Klor-Con) 40 meq PO DAILYP PRN PRN Reason: K+ < 3.5 Potassium Chloride (Kdur) 10 meq PO BIDCC [facility] Prazosin HCl (Minipress) 2 mg PO HS [facility] Senna/Docusate Sodium (Senna Plus Tablet) 1 tab PO HS [facility] Sitagliptin Phosphate (Januvia) 100 mg PO DAILY [facility] Sodium Chloride (Saline Flush) 10 ml IV Q8 [facility] Last Admin: 07/23/18 12:11 Dose: 10 ml Documented by: Vancomycin HCl (Vancomycin Per Pharmacy) 1 order IV UD [facility] Medical - PN: A/P - Time Spent With Patient Total time spent is greater than 50% in coordination of care (as documented) at patient's floor/unit and/or counseling patient: - Narrative A/P Narrative: A: *Septic shock: exact source still in question however dramatic response to crystalloid/antibiotics -Lactic acid normalized, leukocytosis improving, afebrile, PCT improving -Improved end-organ dysfunction *Diabetic left lower extremity cast/probable cellulitis: patient was evaluated by wound care. *Acute renal failure: secondary to sepsis and end-organ dysfunction -improving *Insulin-dependent diabetes- *Hypertension: *COPD: continue bronchodilators *Anxiety disorder: continue venlafaxine *Diabetic neuropathy: continue gabapentin *Chronic pain/spasm-20 seconds appearing *History of CAD:continue aspirin/statin *Hyperlipidemia: *History of glaucoma on timolol *GERD: continue PPI Plan: -seen by wound care -Transfer to telemetry -Consider further imaging if persistent leukocytosis or signs of infection as source unclear as yet; Consider CT foot to rule out deep-seated infection -deescalate antibiotic coverage in 24-48 hours -Await culture results -restart medications once septic shock resolved -cont cardiac meds -basal and SSI -ppx: heparin No Code Medical - PN: Qual - VTE Deep Vein Thrombosis/Pulmonary Embolism Present on Admission: No
[2018-07-23] MEDS: GABAPENTIN 300 MG CAPSULE PO SCH ×3 (15:47→19:59)
[2018-07-23] MEDS: POTASSIUM CHLORIDE 10 MEQ TABLET PO SCH (17:32)
[2018-07-23] MEDS ORDERED: CYCLOBENZAPRINE 10 MG TABLET PO SCH ×2 (21:00)
[2018-07-23] MEDS ORDERED: PRAZOSIN 1 MG CAPSULE PO SCH ×2 (21:00)
[2018-07-23] MEDS ORDERED: SENNOSIDES/DOCUSATE SODIUM 1 TAB TABLET PO SCH (21:00)
[2018-07-23] MEDS ORDERED: ATORVASTATIN 20 MG TABLET PO SCH ×2 (21:00)
[2018-07-23] MEDS ORDERED: VANCOMYCIN 1,500 MG in 0.9 % SODIUM CHLORIDE 500 ML IV SCH (21:00)
[2018-07-23] MEDS ORDERED: BUTALB/ACETAMINOPHEN/CAFFEINE 1 TABLET PO ONE (21:10)
[2018-07-23] MEDS ORDERED: NAPROXEN 250 MG TABLET PO PRN (21:11)
[2018-07-23] MEDS: INSULIN GLARGINE, HUMAN 1 UNIT/0.01 ML SQ SCH (21:46)
[2018-07-23] MEDS: FLUTICASONE HFA 110MCG INHALER INH SCH (21:46)
[2018-07-24] MEDS: 0.9 % SODIUM CHLORIDE 1,000 ML IV SCH ×2 (02:44→07:38)
[2018-07-24 05:22] LABS: Mean Cell Volume 86.9 fL (80.0-100.0); Mean Corpuscular HGB Conc 31.8 g/dL (31.0-36.0); Platelet Count 392 K/mcL (140-440); RBC 3.83 M/mcL (4.50-5.90); Red Cell Distribution Width 16.2 % (11.5-14.5)
[2018-07-24] MEDS: PIPERACILLIN SODIUM/TAZOBACTAM 3.375 GM in DEXTROSE 5% IN WATER 50 ML IV SCH ×4 (05:25→23:44)
[2018-07-24] MEDS: 0.9 % SODIUM CHLORIDE 10 ML SYRINGE IV SCH ×4 (05:26→20:42)
[2018-07-24 05:42] LABS: ALT/SGPT 39 U/l (0-40); Albumin 2.9 gm/dL (3.2-5.2); Albumin/Globulin Ratio 0.7 (1.0-2.3); Alkaline Phosphatase 79 U/L (39-117); Bilirubin,Direct < 0.2 mg/dL (0.0-0.3); Blood Urea Nitrogen 15 mg/dl (6-20); Gamma Glutamyl Transpeptidase 77 U/L (8-61); Uric Acid 4.4 mg/dL (2.5-8.0)
--- NOTE | 2018-07-24 07:23 | Internal Med Progress Note ---
Medical - PN: Subj Patient information: Note initiated : 07/24/18 at 7:17 am Service Date, if different from initiated Date: [] Patient: Roberto Johnson a 43 y/o M admitted on 07/22/18 for Weak, Cough and Cold, Tired, Sorethroat. Chief Complaint: [] Interval history: Mr. Johnson is a 43 year old M with a known history of diabetes mellitus type 2, suboptimal outpatient control with extensive peripheral vascular disease/history of right leg below knee amputation and left foot diabetic wound which was placed in a cast 2 weeks ago due to underlying callus and to offload to prevent infection. He has has been undergoing wound care by Dr. Cummings for a callus. However over the last couple of weeks patient has been experiencing URI symptoms with cough, chills, weakness and came into the ER due to excessive fatigue weakness and inability to function. He denies sick contact. He denies productive yellow sputum, sinus symptoms. Initial workup in the ER was significant for hypotension/elevated white count of 16.3 and workup consistent with a sepsis with elevated lactic acid at 3. Exact source was unclear given negative chest x-ray. Cultures were drawn and hospitalist service was consulted for evaluation. Patient received 2 L of crystalloids with resultant improvement in systolics to 100. At the time of evaluation patient is alert oriented. He is in minimal discomfort. He was able to write answers to most of the questions history as above. He denies chest pain shortness of breath but endorses a cough weakness fatigue, denies myalgia, headache photophobia, diarrhea or dysuria. 07/23-patient doing well this morning. No overnight events. Lactic acid improved. White count downtrending. Stable hemodynamics. Transfer to telemetry. No fever chills nausea vomiting or concerns. Did not require vasopressors. No other concerns expressed to nursing staff. 07/24 Left well. Feeling much better. More energy. No fevers or chills. - Constitutional Vitals: Vital Signs Temp Pulse Resp BP Pulse Ox 97.0 F 104 H 23 H 121/65 96 07/24/18 04:05 07/23/18 08:00 07/24/18 04:05 07/24/18 04:05 07/24/18 04:05 Period Temp Pulse Resp BP Sys/Love Pulse Ox Last 24 Hr 97.0 F-99.0 F 104 14-29 106-175/52-86 93-97 Intake and Output 07/23/18 07/24/18 07/24/18 21:59 05:59 13:59 Intake Total 290 1550 Output Total 1150 1450 Balance -860 100 Weight 109.543 kg Intake & Output: Intake & Output 07/23/18 07/24/18 07/24/18 21:59 05:59 13:59 Intake Total 290 1550 Output Total 1150 1450 Balance -860 100 Weight 109.543 kg Intake: IV 50 1550 Zosyn 3.375 gm In Dextrose 5% 50 50 in Water 50 ml @ 100 mls/hr IV Q6H [facility] Rx#:[id number] Vancomycin 1,500 mg In Sodium 500 Chloride 0.9% 500 ml @ 333.3 mls/hr IV Q12H [facility]ANESSA Rx#: [id number] Oral 240 Output: Void Amount 1150 1450 Other: Meal Dinner snack Percent of Meal Consumed 75% 100% Feeding Ability Assist with Tray Set Up Independent Urine Appearance Cloudy Urine Color Light Agueda Stool Size Moderate Small Stool Color Brown Brown Stool Consistency Soft Formed Formed Exam: General: Alert, Awake, No acute Distress Eyes/N/T: EOMI, Head/Neck: neck supple, CV: RRR, No murmurs, Pulm: Clear b/l, no wheezing/rhonchi/rales Abd: soft, nontender, +BS x4 Ext: no clubbing/cyanosis. Right BKA, Left foot in cast Neuro: Alert, no focal deficits, moves all extremities, Skin: warm/dry Medical - PN: Obj Da - Labs CBC & Chem 7: 07/24/18 03:21 07/24/18 03:21 Labs: Abnormal Lab Results 07/24/18 07/24/18 07/24/18 03:21 03:21 03:21 WBC RBC 3.83 L Hgb 10.6 L Hct 33.3 L RDW 16.2 H Plt Count Gran # [place] # (Auto) RBC Morphology Anisocytosis ESR VBG Lactic Acid Chloride 111 H Carbon Dioxide 21 L BUN Creatinine 1.3 H Glucose 210 H Calcium Phosphorus 2.5 L Magnesium GGT 77 H AST ALT C-Reactive Protein 1.0 H Albumin 2.9 L Globulin 4.1 H Albumin/Globulin Ratio 0.7 L Triglycerides 221 H 07/23/18 07/23/18 07/22/18 03:27 03:27 20:38 WBC 13.1 H RBC 3.70 L Hgb 10.2 L Hct 32.5 L RDW 16.3 H Plt Count Gran # [place] # (Auto) RBC Morphology Abnorm A Anisocytosis 1+ A ESR 101 H VBG Lactic Acid Chloride Carbon Dioxide 19 L BUN 23 H Creatinine 1.4 H Glucose 202 H Calcium 8.0 L Phosphorus Magnesium 1.4 L GGT 71 H AST ALT C-Reactive Protein Albumin 2.5 L Globulin 3.9 H Albumin/Globulin Ratio 0.6 L Triglycerides 203 H 07/22/18 07/22/18 07/22/18 20:38 17:02 15:28 WBC RBC Hgb Hct RDW Plt Count Gran # [place] # (Auto) RBC Morphology Anisocytosis ESR VBG Lactic Acid 3.0 H Chloride Carbon Dioxide 20 L BUN 27 H Creatinine 1.7 H Glucose 205 H Calcium Phosphorus Magnesium GGT AST 55 H ALT 50 H C-Reactive Protein 1.2 H Albumin 3.1 L Globulin 5.1 H Albumin/Globulin Ratio 0.6 L Triglycerides 07/22/18 15:28 WBC 16.3 H RBC 4.31 L Hgb 11.6 L Hct 37.3 L RDW 16.3 H Plt Count 488 H Gran # 10.6 H [place] # (Auto) 1.1 H RBC Morphology Anisocytosis ESR VBG Lactic Acid Chloride Carbon Dioxide BUN Creatinine Glucose Calcium Phosphorus Magnesium GGT AST ALT C-Reactive Protein Albumin Globulin Albumin/Globulin Ratio Triglycerides Meds: Medications Acetaminophen (Tylenol) 650 mg PO Q4-6HP PRN PRN Reason: PAIN/FEVER > 101 Last Admin: 07/23/18 19:58 Dose: 650 mg Documented by: Aspirin (Aspirin) 81 mg PO DAILY [facility] Atorvastatin Calcium (Lipitor) 80 mg PO HS [facility] Last Admin: 07/23/18 19:59 Dose: 80 mg Documented by: Cyanocobalamin (Vitamin B-12) 1,000 mcg PO BID [facility] Stop: 07/27/18 09:01 Last Admin: 07/23/18 19:58 Dose: 1,000 mcg Documented by: Cyclobenzaprine HCl (Flexeril) 10 mg PO HS [facility] Last Admin: 07/23/18 19:59 Dose: 10 mg Documented by: Dextrose (Dextrose 50%) 0 ml IV UD PRN PRN Reason: Hypoglycemia Diagnostic Test (Pha) (Accu-Chek) 1 each FS ACHS [facility] Last Admin: 07/23/18 21:15 Dose: 1 each Documented by: Docusate Sodium (Colace) 100 mg PO BID [facility] Last Admin: 07/23/18 20:54 Dose: Not Given Documented by: Fluticasone Propionate (Flovent Hfa 110mcg) 2 puff INH BID [facility] Last Admin: 07/23/18 21:46 Dose: Not Given Documented by: Gabapentin (Neurontin) 300 mg PO TID [facility] Last Admin: 07/23/18 19:59 Dose: 300 mg Documented by: Glucose (Insta-Glucose) 15 gm PO PRN PRN PRN Reason: Hypoglycemia Heparin Sodium (Porcine) (Heparin) 5,000 unit SQ Q12 [facility] Last Admin: 07/23/18 20:57 Dose: 5,000 unit Documented by: Hydromorphone HCl (Dilaudid) 0 mg IV Q4HP PRN PRN Reason: PAIN LEVEL > 6 Last Admin: 07/24/18 00:35 Dose: 0.25 mg Documented by: Magnesium Sulfate (Magnesium Sulfate) 2 gm in 50 mls @ 50 mls/hr IV UD PRN PRN Reason: MG = or < 1.7 Norepinephrine Bitartrate 16 (mg/ Sodium Chloride) 250 mls @ 9.38 mls/hr IV Q24HP PRN; Protocol PRN Reason: Hypotension Sodium Chloride (Sodium Chloride 0.9%) 1,000 mls @ 50 mls/hr IV .Q20H [facility] Stop: 07/25/18 08:21 Last Admin: 07/24/18 02:44 Dose: 50 mls/hr Documented by: Piperacillin Sod/Tazobactam (Sod 3.375 gm/ Dextrose) 50 mls @ 100 mls/hr IV Q6H [facility] Last Admin: 07/24/18 05:25 Dose: 100 mls/hr Documented by: Vancomycin HCl 1,500 mg/ (Sodium Chloride) 500 mls @ 333.3 mls/hr IV Q12H [facility] Last Infusion: 07/23/18 23:08 Dose: Infused Documented by: Insulin Glargine (Lantus) 60 unit SQ BID [facility] Last Admin: 07/23/18 21:46 Dose: 60 unit Documented by: Insulin Human Lispro (Humalog) 0 unit SQ ACHS [facility]; Protocol Last Admin: 07/23/18 21:46 Dose: 3 unit Documented by: Iron Carb/Multivit/Edmund/Folic Acid (Multivitamin W/Minerals) 1 tab PO DAILY [facility] Magnesium Hydroxide (Milk Of Magnesia) 30 ml PO HSP PRN PRN Reason: Constipation Naproxen (Naprosyn) 500 mg PO BIDCC PRN PRN Reason: Headache Nitroglycerin (Nitrostat) 0.4 mg SL Q5M PRN PRN Reason: Chest Pain Ondansetron HCl (Zofran) 4 mg IV Q4-6HP PRN PRN Reason: Nausea And Vomiting Potassium Chloride (Klor-Con) 40 meq PO DAILYP PRN PRN Reason: K+ < 3.5 Potassium Chloride (Kdur) 10 meq PO BIDCC [facility] Last Admin: 07/23/18 17:32 Dose: 10 meq Documented by: Prazosin HCl (Minipress) 2 mg PO [facility] Last Admin: 07/23/18 19:59 Dose: 2 mg Documented by: Senna/Docusate Sodium (Senna Plus Tablet) 1 tab PO [facility] Last Admin: 07/23/18 20:54 Dose: Not Given Documented by: Sitagliptin Phosphate (Januvia) 100 mg PO DAILY [facility] Sodium Chloride (Saline Flush) 10 ml IV Q8 [facility] Last Admin: 07/24/18 05:26 Dose: 10 ml Documented by: Vancomycin HCl (Vancomycin Per Pharmacy) 1 order IV UD [facility] Medical - PN: A/P - Time Spent With Patient Total time spent is greater than 50% in coordination of care (as documented) at patient's floor/unit and/or counseling patient: - Narrative A/P Narrative: A: *Septic shock: exact source still in question however dramatic response to crystalloid/antibiotics -Lactic acid normalized, leukocytosis resolved, afebrile, PCT improving -Improved end-organ dysfunction *Diabetic ulcer LLE placed in cast 2wks ago to offload: -follows with wound care -unable to assess wound given cast *PARAS on CKD II:: secondary to sepsis and end-organ dysfunction -improving *Insulin-dependent diabetes *Hypertension: *COPD( ): continue bronchodilators *Anxiety disorder: continue venlafaxine *Diabetic neuropathy: continue gabapentin *Chronic pain/spasm-20 seconds appearing *History of CAD: continue aspirin/statin *Hyperlipidemia: *History of glaucoma on timolol *GERD: continue PPI Plan: -IVF's d/c -seen by wound care surgeon, who will remove cast after the weekend. -MRI to LE to evaluate for osteo given high ESR and no other source of infection -deescalate antibiotic coverage in 24-48 hours -Await culture results -restart medications once septic shock resolved , clarify home meds -cont cardiac meds -basal and SSI -ppx: heparin No Code Medical - PN: Qual - VTE Deep Vein Thrombosis/Pulmonary Embolism Present on Admission: No
[2018-07-24 07:38] LABS: Anisocytosis 1+ (NONE SEEN); Band Neutrophils % 2 % (0-10); Eosinophils % (Manual) 6 % (0-7); Lymphocytes % 27 % (15-49); Monocytes % (Manual) 2 % (1-12); Platelet Estimate NORMAL (NORMAL); RBC Morphology ABNORM (NORMAL); Segmented Neutrophils % 63 % (38-78)
[2018-07-24] MEDS: INSULIN LISPRO 1 UNIT/0.01 ML UNIT SQ SCH ×4 (07:47→20:42)
[2018-07-24] MEDS: INSULIN GLARGINE, HUMAN 1 UNIT/0.01 ML SQ SCH ×2 (07:47→20:41)
[2018-07-24] MEDS: HEPARIN 5,000 UNIT/ML VIAL SQ SCH ×2 (07:48→20:28)
[2018-07-24] MEDS: GABAPENTIN 300 MG CAPSULE PO SCH ×3 (07:48→20:28)
[2018-07-24] MEDS: CYANOCOBALAMIN (VITAMIN B-12) 500 MCG TABLET PO SCH ×2 (07:49→20:27)
[2018-07-24] MEDS: FLUTICASONE HFA 110MCG INHALER INH SCH ×2 (07:49→20:27)
[2018-07-24] MEDS: DOCUSATE SODIUM 100 MG CAPSULE PO SCH ×2 (07:49→20:28)
[2018-07-24] MEDS: POTASSIUM CHLORIDE 10 MEQ TABLET PO SCH ×2 (07:49→17:39)
[2018-07-24] MEDS ORDERED: sitaGLIPtin 100 MG TABLET PO SCH (09:00)
[2018-07-24] MEDS ORDERED: MULTIVIT,THER IRON,CA,FA & MIN 1 TABLET PO SCH (09:00)
[2018-07-24] MEDS ORDERED: ASPIRIN 81 MG TAB.CHEW PO SCH ×2 (09:00)
--- NOTE | 2018-07-24 12:02 | General Surgery Consult Note ---
History of Present Illness Patient information: Note initiated : 07/24/18 at 11:56 am Service Date, if different from initiated Date: [] Patient: Roberto Johnson 43 y/o M admitted on 07/22/18 for Weak, Cough and Cold, Tired, Sorethroat. Chief Complaint: [] Consult date: 07/23/18 Requesting physician: Morales Tai History of present illness: I saw this patient on 07/23/2018 along with Kamla ICU nurse and reassessed him again this morning 07/24 2018. Patient was admitted to the hospital via emergency room after being evaluated in the wound care clinic earlier. He is an established patient of the wound care clinic for several months. Insulin-dependent diabetic, chronic smoker and status post right below-knee amputation and left second great toe amputation wi th a neuropathic ulcer on the plantar aspect of the fifth toe. This is being offloaded with a total contact cast. Mainly this has a dry base and a periwound callus. On the day of admission, patient had the tachypnea, tachycardia and low blood pressure in the wound care clinic. The right BKA stump and the left foot toes themselves were unremarkable. The right BKA stump and the left foot did not appear to be the source of his immediate symptoms. Subsequently, patient was evaluated in the ER and admitted to the hospital. Currently, his hemodynamic instability has resolved. He has responded very well to intravenous fluid administration and supportive care along with empiric antibiotics. Now at his baseline status. . Medications and Allergies Home Medications Medication Instructions Recorded Confirmed Type Acetaminophen [Pain Reliever] 1,000 mg PO BID 06/04/17 04/28/18 History Aspirin [Lo-Dose Aspirin EC] 81 mg PO DAILY 06/04/17 04/28/18 History Lactobacillus Acidophilus 0.5 mg PO DAILY 06/04/17 04/28/18 History [Acidophilus Probiotic] Loratadine [Loradamed] 10 mg PO 06/04/17 04/28/18 History Omeprazole [PriLOSEC] 40 mg PO ACB 06/04/17 07/23/18 History Timolol 0.5% Ophth Drops [Timoptic 1 gtt OU BID 06/04/17 07/23/18 History 0.5% Ophth Drops] Vitamin D3 1,000 unit PO DAILY 06/04/17 04/28/18 History albuterol sulfate HFA 90 2 puff INHALATION Q6H PRN 03/23/18 04/28/18 History mcg/actuation aerosol inhaler atorvastatin 80 mg tablet 80 mg PO HS 03/23/18 07/23/18 History chlorthalidone 25 mg tablet 25 mg PO QDAY 03/23/18 07/23/18 History cyclobenzaprine 10 mg tablet 10 mg PO HS tab 03/23/18 07/23/18 History gabapentin 300 mg capsule 300 mg PO TID cap 03/23/18 07/23/18 History insulin aspart U- 100 100 unit/mL See Rx Instructions SUB-Q .COMPLEX 03/23/18 07/23/18 History subcutaneous solution lisinopril 20 mg tablet 20 mg PO QDAY 03/23/18 07/23/18 History metformin 1,000 mg tablet 1,000 mg PO BIDCC tab 03/23/18 07/23/18 History pioglitazone 15 mg tablet 15 mg PO QDAY 03/23/18 07/23/18 History prazosin 2 mg capsule 2 mg PO HS cap 03/23/18 07/22/18 History promethazine 25 mg tablet 25 mg PO Q8HP PRN tab 03/23/18 07/23/18 History topiramate 100 mg tablet 100 mg PO QDAY tab 03/23/18 07/23/18 History venlafaxine ER 75 mg 225 mg PO DAILY cap 03/23/18 07/23/18 History capsule,extended release 24 hr doxycycline hyclate 100 mg capsule 100 mg PO BID #60 cap 04/08/18 07/22/18 Rx fluticasone 110 mcg/actuation HFA 2 puff INHALATION BID 04/28/18 07/23/18 History aerosol inhaler insulin detemir (U- 100) 100 60 unit SUB-Q BID ml 04/28/18 07/23/18 History unit/mL subcutaneous solution liraglutide 0.6 mg/0.1 mL (18 mg/3 1.8 mg SUB-Q QDAY ml 04/28/18 07/23/18 History mL) subcutaneous pen injector loperamide 2 mg capsule 2 mg PO Q2-4H PRN 04/28/18 07/23/18 History metoclopramide 10 mg tablet 15 mg PO TIDAC tab 04/28/18 07/23/18 History potassium chloride ER 10 mEq 10 meq PO QAMCC 04/28/18 07/23/18 History tablet,extended release trazodone 100 mg tablet 100 mg PO QHS tab 04/28/18 07/23/18 History Acetaminophen [Tylenol Arthritis] 650 mg PO Q6HP PRN 07/22/18 History HYDROcodone/APAP 10/325MG [[place] 1 tab PO BIDP PRN 07/23/18 07/23/18 History 10-325Mg] Naproxen [Naprosyn] 500 mg PO BIDCC 07/23/18 07/23/18 History Allergies Allergy/AdvReac Type Severity Reaction Status Date / Time sulfamethoxazole Allergy Mild Rash Verified 07/22/18 14:50 [From Bactrim] trimethoprim [From Bactrim] Allergy Mild Rash Verified 07/22/18 14:50 fluticasone [From Flonase] AdvReac Mild Dry Mucus Verified 07/22/18 14:50 Membranes Exam Temp Pulse Resp BP Pulse Ox 97.0 F 104 H 23 H 121/65 96 07/24/18 04:05 07/23/18 08:00 07/24/18 04:05 07/24/18 04:05 07/24/18 04:05 - General physical appearance well developed, well nourished, no distress, no pain - Eyes PERRL, normal ocular movement - ENT normal pinna, normal nares, normal mucosa, no congestion - Head Head exam IM: Present: atraumatic, normal inspection, normocephalic - Neck no masses, no bruits, no venous distension - Cardiovascular Cardiovascular exam IM: Present: normal rate and rhythm, tachycardia (tachycardia improved.) - Respiratory normal respiratory effort, clear to auscultation - Abdomen Abdomen: Present: soft, non tender, bowel sounds - Integumentary Present: other (dressings right BKA stump clean dry and intact. Toes left foot clean by and intact. Left TCC is intact.) - Neurologic Present: other (nonfocal unremarkable neurological examination. No interval changes.) - Musculoskeletal Present: other (Mainly wheelchair bound. Right BKA and left first toe amputation.) - Psychiatric Present: oriented to time, oriented to person, oriented to place, speech is normal Results - Labs 07/24/18 03:21 07/24/18 03:21 Abnormal lab results 02/07/24/18 07/24/18 Range/Units 03:21 03:21 03:21 RBC 3.83 L (4.50-5.90) M/mcL Hgb 10.6 L (13.5-16.5) g/dL Hct 33.3 L (41.0-55.0) % RDW 16.2 H (11.5-14.5) % RBC Morphology Abnorm A (NORMAL) Anisocytosis 1+ A (NONE SEEN) ESR 107 H (0-15) mm/hr Chloride 111 H (96-108) mmol/L Carbon Dioxide 21 L (22-30) mmol/L Creatinine 1.3 H (0.7-1.2) mg/dl Glucose 210 H (70-105) mg/dL Phosphorus 2.5 L (2.7-4.5) mg/dL GGT 77 H (8-61) U/L C-Reactive Protein (0.0-0.8) mg/dl Albumin 2.9 L (3.2-5.2) gm/dL Globulin 4.1 H (2.2-3.7) gm/dL Albumin/Globulin Ratio 0.7 L (1.0-2.3) Triglycerides 221 H (<150) mg/dl Vancomycin Trough ug/mL 07/24/18 07/24/18 Range/Units 03:21 07:57 RBC (4.50-5.90) M/mcL Hgb (13.5-16.5) g/dL Hct (41.0-55.0) % RDW (11.5-14.5) % RBC Morphology (NORMAL) Anisocytosis (NONE SEEN) ESR (0-15) mm/hr Chloride (96-108) mmol/L Carbon Dioxide (22-30) mmol/L Creatinine (0.7-1.2) mg/dl Glucose (70-105) mg/dL Phosphorus (2.7-4.5) mg/dL GGT (8-61) U/L C-Reactive Protein 1.0 H (0.0-0.8) mg/dl Albumin (3.2-5.2) gm/dL Globulin (2.2-3.7) gm/dL Albumin/Globulin Ratio (1.0-2.3) Triglycerides (<150) mg/dl Vancomycin Trough 32.8 H* ug/mL Diabetes panel 07/24/18 Range/Units 03:21 Sodium 143 (133-145) mmol/L Potassium 4.3 (3.3-5.1) mmol/L Chloride 111 H (96-108) mmol/L Carbon Dioxide 21 L (22-30) mmol/L BUN 15 (6-20) mg/dl Creatinine 1.3 H (0.7-1.2) mg/dl Glucose 210 H (70-105) mg/dL Calcium 8.7 (8.6-10.4) mg/dl AST 31 (0-37) U/l ALT 39 (0-40) U/l Alkaline Phosphatase 79 (39-117) U/L Total Protein 7.0 (5.9-8.4) gm/dL Albumin 2.9 L (3.2-5.2) gm/dL Triglycerides 221 H (<150) mg/dl Calcium panel 07/24/18 Range/Units 03:21 Calcium 8.7 (8.6-10.4) mg/dl Phosphorus 2.5 L (2.7-4.5) mg/dL Albumin 2.9 L (3.2-5.2) gm/dL Pituitary panel 07/24/18 Range/Units 03:21 Sodium 143 (133-145) mmol/L Potassium 4.3 (3.3-5.1) mmol/L Chloride 111 H (96-108) mmol/L Carbon Dioxide 21 L (22-30) mmol/L BUN 15 (6-20) mg/dl Creatinine 1.3 H (0.7-1.2) mg/dl Glucose 210 H (70-105) mg/dL Calcium 8.7 (8.6-10.4) mg/dl Adrenal panel 07/24/18 Range/Units 03:21 Sodium 143 (133-145) mmol/L Potassium 4.3 (3.3-5.1) mmol/L Chloride 111 H (96-108) mmol/L Carbon Dioxide 21 L (22-30) mmol/L BUN 15 (6-20) mg/dl Creatinine 1.3 H (0.7-1.2) mg/dl Glucose 210 H (70-105) mg/dL Calcium 8.7 (8.6-10.4) mg/dl Total Bilirubin 0.2 (0.0-1.0) mg/dL AST 31 (0-37) U/l ALT 39 (0-40) U/l Alkaline Phosphatase 79 (39-117) U/L Total Protein 7.0 (5.9-8.4) gm/dL Albumin 2.9 L (3.2-5.2) gm/dL All other labs normal. Assessment and Plan (1) Wounds and injuries Assessment: Trophic ulceration inferior aspect right BKA. This is an epidermal ulceration. No evidence of acute infection. Local wound care and protective dressings. Left foot topical antimicrobial long-acting dressings in place and reinforced with total contact cast. Toes are warm and dry. TCC is clean and there is no evidence of active inflammation or infection. Plan: Continue current treatment. Anticipate that he'll be discharged in the near future and will follow up with the wound care center. Status: Chronic Priority: Low (2) Septic shock Status: Chronic Priority: Low
[2018-07-24] MEDS ORDERED: ONDANSETRON 4 MG/2 ML VIAL IV PRN (13:09)
[2018-07-24] MEDS ORDERED: NITROGLYCERIN 0.4 MG TAB.SUBL SL PRN (13:09)
[2018-07-24] MEDS ORDERED: DEXTROSE 31 GM ORAL.SUSP PO PRN (13:09)
[2018-07-24] MEDS ORDERED: MAGNESIUM SULFATE 2 GM/50 ML BAG IV PRN (13:09)
[2018-07-24] MEDS ORDERED: MAGNESIUM HYDROXIDE 30 ML ORAL.SUSP PO PRN (13:09)
[2018-07-24] MEDS ORDERED: VANCOMYCIN PER PHARMACY IV SCH (13:09)
[2018-07-24] MEDS ORDERED: ACETAMINOPHEN 325 MG TABLET PO PRN (13:09)
[2018-07-24] MEDS ORDERED: HYDROmorphone 2 MG/ML VIAL IV PRN (13:09)
[2018-07-24] MEDS ORDERED: DEXTROSE 50% 50 ML VIAL IV PRN (13:09)
[2018-07-24] MEDS ORDERED: NAPROXEN 250 MG TABLET PO PRN (13:09)
[2018-07-24] MEDS ORDERED: POTASSIUM CHLORIDE 20 MEQ PACKET PO PRN (13:09)
--- NOTE | 2018-07-24 16:02 | Magnetic Resonance Report ---
CLINICAL INFORMATION: Nonhealing wound at the base of the fourth digit TECHNIQUE: Sagittal, axial, coronal images of the left foot. Patient had a cast in place and we were unable to use the foot coil. Examination is suboptimal. COMPARISON: None. FINDINGS: Previous transmetatarsal amputation of the left first digit. Hammertoe deformities of the second through fifth digits No definite bone marrow edema or cortical destruction. No definite evidence for osteomyelitis. This examination is considered suboptimal and of decreased sensitivity. If clinically indicated follow-up examination may be of benefit. Metatarsals and tarsal bones are negative. There is a small focus of bone marrow edema in the plantar aspects of the calcaneus. There is associated cortical loss. This is localized and may represent acute trauma rather than osteomyelitis. No soft tissue fluid collections. No detectable gas. Medial and lateral tendons are negative. No ligamentous injury. Achilles tendon is normal. IMPRESSION: 1. Previous transmetatarsal amputation of the left first digit 2. No evidence for osteomyelitis Interpreted and Authenticated by: Harjit Aparicio 07/24/18
[2018-07-24] MEDS ORDERED: PRAZOSIN 1 MG CAPSULE PO SCH (21:00)
[2018-07-24] MEDS ORDERED: traZODone HCL 100 MG TABLET PO SCH (21:00)
[2018-07-24] MEDS ORDERED: CYCLOBENZAPRINE 10 MG TABLET PO SCH (21:00)
[2018-07-24] MEDS ORDERED: SENNOSIDES/DOCUSATE SODIUM 1 TAB TABLET PO SCH (21:00)
[2018-07-24] MEDS ORDERED: ATORVASTATIN 20 MG TABLET PO SCH (21:00)
[2018-07-25 05:51] LABS: Vancomycin,Random 16.1 ug/mL
[2018-07-25 05:58] LABS: ALT/SGPT 34 U/l (0-40); Albumin 3.2 gm/dL (3.2-5.2); Albumin/Globulin Ratio 0.7 (1.0-2.3); Alkaline Phosphatase 82 U/L (39-117); Bilirubin,Direct < 0.2 mg/dL (0.0-0.3); Blood Urea Nitrogen 14 mg/dl (6-20); Gamma Glutamyl Transpeptidase 87 U/L (8-61); Uric Acid 3.9 mg/dL (2.5-8.0)
[2018-07-25] MEDS: PIPERACILLIN SODIUM/TAZOBACTAM 3.375 GM in DEXTROSE 5% IN WATER 50 ML IV SCH ×2 (06:09→11:37)
[2018-07-25] MEDS: 0.9 % SODIUM CHLORIDE 10 ML SYRINGE IV SCH (06:10)
[2018-07-25] MEDS ORDERED: METOPROLOL TARTRATE 25 MG TABLET PO ONE (06:55)
--- NOTE | 2018-07-25 07:02 | Discharge Summary ---
Medical - DS: Prov Patient information: Note initiated : 07/25/18 at 6:53 am Service Date, if different from initiated Date: [] Patient: Roberto Johnson 43 y/o M admitted on 07/22/18 for Weak, Cough and Cold, Tired, Sorethroat. Chief Complaint: [] Date of admission: 07/22/18 20:20 Discharge date: 07/25/18 Primary care physician: Shay Johnson Consults: 07/22/18 17:38 Consult to Physician [CONS] Stat Comment: Consulting Provider: Morales Tai Reason For Exam: Physician to Consult 07/22/18 20:22 Consult to Physician [CONS] Routine Comment: Consulting Provider: Tavo Cummings Reason For Exam: Physician to Consult Medical - DS: Meds - Discharge Medications Prescriptions: Amoxicillin/Potassium Clav [Augmentin] 875 mg PO Q12H #10 tab Lactobacillus [Culturelle] 1 cap PO BID #60 capsule Active and Home Medications: Home Medications Acetaminophen [Pain Reliever] 1,000 mg PO BID 06/04/17 [History Confirmed 07/24/18 Last Taken 06/04/17] Aspirin [Lo-Dose Aspirin EC] 81 mg PO DAILY 06/04/17 [History Confirmed 07/24/18 Last Taken 06/04/17] Lactobacillus Acidophilus [Acidophilus Probiotic] 0.5 mg PO DAILY 06/04/17 [History Confirmed 07/24/18 Last Taken 06/04/17] Loratadine [Loradamed] 10 mg PO DAILYP PRN 06/04/17 [History Confirmed 07/24/18 Last Taken 06/04/17] Omeprazole [PriLOSEC] 40 mg PO ACB 06/04/17 [History Confirmed 07/23/18 Last Taken 06/04/17] Timolol 0.5% Ophth Drops [Timoptic 0.5% Ophth Drops] 1 gtt OU BID 06/04/17 [History Confirmed 07/23/18 Last Taken 06/03/17] Vitamin D3 1,000 unit PO DAILY 06/04/17 [History Confirmed 07/24/18 Last Taken 06/03/17] albuterol sulfate HFA 90 mcg/actuation aerosol inhaler 2 puff INHALATION Q6H PRN 03/23/18 [History Confirmed 07/24/18 Last Taken Unknown] atorvastatin 80 mg tablet 80 mg PO HS 03/23/18 [History Confirmed 07/23/18 Last Taken Unknown] chlorthalidone 25 mg tablet 25 mg PO QDAY 03/23/18 [History Confirmed 07/23/18 Last Taken Unknown] cyclobenzaprine 10 mg tablet 10 mg PO HS tab 03/23/18 [History Confirmed 07/23/18 Last Taken Unknown] gabapentin 300 mg capsule 300 mg PO TID cap 03/23/18 [History Confirmed 07/23/18 Last Taken Unknown] insulin aspart U- 100 100 unit/mL subcutaneous solution See Rx Instructions SUB-Q .COMPLEX 03/23/18 [History Confirmed 07/23/18 Last Taken Unknown] lisinopril 20 mg tablet 20 mg PO QDAY 03/23/18 [History Confirmed 07/23/18 Last Taken Unknown] metformin 1,000 mg tablet 1,000 mg PO BIDCC tab 03/23/18 [History Confirmed 07/23/18 Last Taken Unknown] pioglitazone 15 mg tablet 15 mg PO QDAY 03/23/18 [History Confirmed 07/23/18 Last Taken Unknown] prazosin 2 mg capsule 2 mg PO HS cap 03/23/18 [History Confirmed 07/22/18 Last Taken 07/21/18 21:00] promethazine 25 mg tablet 25 mg PO Q8HP PRN tab 03/23/18 [History Confirmed 07/23/18 Last Taken Unknown] topiramate 100 mg tablet 100 mg PO QDAY tab 03/23/18 [History Confirmed 07/23/18 Last Taken Unknown] venlafaxine ER 75 mg capsule,extended release 24 hr 225 mg PO DAILY cap 03/23/18 [History Confirmed 07/23/18 Last Taken Unknown] doxycycline hyclate 100 mg capsule 100 mg PO BID #60 cap 04/08/18 [Rx Confirmed 07/22/18 Last Taken Unknown] fluticasone 110 mcg/actuation HFA aerosol inhaler 2 puff INHALATION BID 04/28/18 [History Confirmed 07/23/18 Last Taken Unknown] insulin detemir (U- 100) 100 unit/mL subcutaneous solution 60 unit SUB-Q BID ml 04/28/18 [History Confirmed 07/23/18 Last Taken Unknown] liraglutide 0.6 mg/0.1 mL (18 mg/3 mL) subcutaneous pen injector 1.8 mg SUB-Q QDAY ml 04/28/18 [History Confirmed 07/23/18 Last Taken Unknown] loperamide 2 mg capsule 2 mg PO Q2-4H PRN 04/28/18 [History Confirmed 07/23/18 Last Taken Unknown] metoclopramide 10 mg tablet 15 mg PO TIDAC tab 04/28/18 [History Confirmed 07/23/18 Last Taken Unknown] potassium chloride ER 10 mEq tablet,extended release 10 meq PO QAMCC 04/28/18 [History Confirmed 07/23/18 Last Taken 07/22/18 08:30] trazodone 100 mg tablet 100 mg PO QHS tab 04/28/18 [History Confirmed 07/23/18 Last Taken Unknown] Acetaminophen [Tylenol Arthritis] 650 mg PO Q6HP PRN 07/22/18 [History Confirmed 07/24/18 Last Taken Unknown] HYDROcodone/APAP 10/325MG [[place] 10-325Mg] 1 tab PO BIDP PRN 07/23/18 [History Confirmed 07/23/18 Last Taken Unknown] Naproxen [Naprosyn] 500 mg PO BIDCC 07/23/18 [History Confirmed 07/23/18 Last Taken Unknown] Home Medications Acetaminophen [Pain Reliever] 1,000 mg PO BID 06/04/17 [History Confirmed 07/24/18 Last Taken 06/04/17] Aspirin [Lo-Dose Aspirin EC] 81 mg PO DAILY 06/04/17 [History Confirmed 07/24/18 Last Taken 06/04/17] Lactobacillus Acidophilus [Acidophilus Probiotic] 0.5 mg PO DAILY 06/04/17 [History Confirmed 07/24/18 Last Taken 06/04/17] Loratadine [Loradamed] 10 mg PO DAILYP PRN 06/04/17 [History Confirmed 07/24/18 Last Taken 06/04/17] Omeprazole [Prilosec] 40 mg PO ACB 06/04/17 [History Confirmed 07/23/18 Last Taken 06/04/17] Timolol 0.5% Ophth Drops [Timoptic 0.5% Ophth Drops] 1 gtt OU BID 06/04/17 [History Confirmed 07/23/18 Last Taken 06/03/17] Vitamin D3 1,000 unit PO DAILY 06/04/17 [History Confirmed 07/24/18 Last Taken 06/03/17] albuterol sulfate HFA 90 mcg/actuation aerosol inhaler 2 puff INHALATION Q6H PRN 03/23/18 [History Confirmed 07/24/18 Last Taken Unknown] atorvastatin 80 mg tablet 80 mg PO HS 03/23/18 [History Confirmed 07/23/18 Last Taken Unknown] cyclobenzaprine 10 mg tablet 10 mg PO HS tab 03/23/18 [History Confirmed 07/23/18 Last Taken Unknown] gabapentin 300 mg capsule 300 mg PO TID cap 03/23/18 [History Confirmed 07/23/18 Last Taken Unknown] insulin aspart U- 100 100 unit/mL subcutaneous solution See Rx Instructions SUB-Q .COMPLEX 03/23/18 [History Confirmed 07/23/18 Last Taken Unknown] lisinopril 20 mg tablet 20 mg PO QDAY 03/23/18 [History Confirmed 07/23/18 Last Taken Unknown] metformin 1,000 mg tablet 1,000 mg PO BIDCC tab 03/23/18 [History Confirmed 07/23/18 Last Taken Unknown] pioglitazone 15 mg tablet 15 mg PO QDAY 03/23/18 [History Confirmed 07/23/18 Last Taken Unknown] prazosin 2 mg capsule 2 mg PO HS cap 03/23/18 [History Confirmed 07/22/18 Last Taken 07/21/18 21:00] promethazine 25 mg tablet 25 mg PO Q8HP PRN tab 03/23/18 [History Confirmed 07/23/18 Last Taken Unknown] topiramate 100 mg tablet 100 mg PO QDAY tab 03/23/18 [History Confirmed 07/23/18 Last Taken Unknown] venlafaxine ER 75 mg capsule,extended release 24 hr 225 mg PO DAILY cap [History Confirmed 07/23/18 Last Taken Unknown] fluticasone 110 mcg/actuation HFA aerosol inhaler 2 puff INHALATION BID 04/28/18 [History Confirmed 07/23/18 Last Taken Unknown] insulin detemir (U- 100) 100 unit/mL subcutaneous solution 60 unit SUB-Q BID ml 04/28/18 [History Confirmed 07/23/18 Last Taken Unknown] liraglutide 0.6 mg/0.1 mL (18 mg/3 mL) subcutaneous pen injector 1.8 mg SUB-Q Q DAY ml 04/28/18 [History Confirmed 07/23/18 Last Taken Unknown] loperamide 2 mg capsule 2 mg PO Q2-4H PRN 04/28/18 [History Confirmed 07/23/18 Last Taken Unknown] metoclopramide 10 mg tablet 15 mg PO TIDAC tab 04/28/18 [History Confirmed 07/23/18 Last Taken Unknown] potassium chloride ER 10 mEq tablet,extended release 10 meq PO QAMCC 04/28/18 [History Confirmed 07/23/18 Last Taken 07/22/18 08:30] trazodone 100 mg tablet 100 mg PO QHS tab 04/28/18 [History Confirmed 07/23/18 Last Taken Unknown] Acetaminophen [Tylenol Arthritis] 650 mg PO Q6HP PRN 07/22/18 [History Confirmed 07/24/18 Last Taken Unknown] HYDROcodone/APAP 10/325MG [[place] 10-325Mg] 1 tab PO BIDP PRN 07/23/18 [History Confirmed 07/23/18 Last Taken Unknown] Naproxen [Naprosyn] 500 mg PO BIDCC 07/23/18 [History Confirmed 07/23/18 Last Taken Unknown] Amoxicillin/Potassium Clav [Augmentin] 875 mg PO Q12H #10 tablet 07/25/18 [Rx Last Taken Unknown] Medical - DS: Hosp Hospital course: Mr. Johnson is a 43 year old M Mr. Johnson is a 43 year old M with a known history of diabetes mellitus type 2, suboptimal outpatient control with extensive peripheral vascular disease/history of right leg below knee amputation and left foot diabetic wound which was placed in a cast 2 weeks ago due to underlying callus and to offload to prevent infection. He has has been undergoing wound care by Dr. Cummings for a callus. However over the last couple of weeks patient has been experiencing URI symptoms with cough, chills, weakness and came into the ER due to excessive fatigue weakness and inability to function. He denies sick contact. He denies productive yellow sputum, sinus symptoms. Initial workup in the ER was significant for hypotension/elevated white count of 16.3 and workup consistent with a sepsis with elevated lactic acid at 3. Exact source was unclear given negative chest x-ray. Cultures were drawn and hospitalist service was consulted for evaluation. Patient received 2 L of crystalloids with resultant improvement in systolics to 100. At the time of evaluation patient is alert oriented. He is in minimal discomfort. He was able to write answers to most of the questions history as above. He denies chest pain shortness of breath but endorses a cough weakness fatigue, denies myalgia, headache photophobia, diarrhea or dysuria. 07/23-patient doing well this morning. No overnight events. Lactic acid improved. White count downtrending. Stable hemodynamics. Transfer to telemetry. No fever chills nausea vomiting or concerns. Did not require vasopressors. No other concerns expressed to nursing staff. 07/24 Left well. Feeling much better. More energy. No fevers or chills. 07/25 Continues to feel well, no overnight events, stable for discharge. MRI foot unremarkable. Discharge diagnosis: t - Time Spent with Patient Total time spent providing and/or coordinating discharge services: Greater than 30 minutes Medical - DS: Exam - Constitutional Vitals: Vital Signs Temp Pulse Resp BP Pulse Ox 07/25/18 04:01 97.8 F 113 H 22 106/64 92 07/24/18 23:45 98.8 F 119 H 22 126/74 90 07/24/18 19:31 97.6 F 109 H 24 H 140/78 92 07/24/18 18:57 101 H 07/24/18 16:00 98.1 F 101 H 19 155/84 91 07/24/18 12:00 97.9 F 104 H 17 164/80 91 07/24/18 08:00 98.0 F 101 H 19 141/76 91 Intake and Output 07/24/18 07/25/18 07/25/18 21:59 05:59 13:59 Intake Total 942 150 Output Total 1600 600 Balance -658 -450 Intake: IV 702 50 Zosyn 3.375 gm In Dextrose 5% 50 50 in Water 50 ml @ 100 mls/hr IV Q6H [facility] Rx#:[id number] Oral 240 100 Output: Void Amount 1600 600 Other: Urine Color Dark Yellow Urine Odor Strong # Bowel Movements 1 Weight 106.821 kg Medical - DS: Data Labs on day of discharge: Labs from last 24 hours 07/25/18 07/25/18 07/25/18 03:59 03:59 03:59 Total Counted Seg Neutrophils % Band Neutrophils % Lymphocytes % Monocytes % (Manual) Eosinophils % (Manual) Platelet Estimate RBC Morphology Anisocytosis ESR Sodium Potassium Chloride Carbon Dioxide Anion Gap BUN Creatinine GFR Calculation Glucose Uric Acid Calcium Phosphorus Magnesium Total Bilirubin Direct Bilirubin GGT AST ALT Alkaline Phosphatase Lactate Dehydrogenase C-Reactive Protein 0.7 Total Protein Albumin Globulin Albumin/Globulin Ratio Triglycerides Procalcitonin 0.18 Vancomycin Trough Random Vancomycin 16.1 Vancomycin Dose Not Reportable Vanco Last Dose Time Not Reportable 07/25/18 07/24/18 07/24/18 03:59 07:57 03:21 Total Counted Seg Neutrophils % Band Neutrophils % Lymphocytes % Monocytes % (Manual) Eosinophils % (Manual) Platelet Estimate RBC Morphology Anisocytosis ESR 107 H Sodium 140 Potassium 4.6 Chloride 109 H Carbon Dioxide 22 Anion Gap 9.0 BUN 14 Creatinine 1.1 GFR Calculation 82 Glucose 155 H Uric Acid 3.9 Calcium 9.4 Phosphorus 2.4 L Magnesium 1.6 Total Bilirubin 0.2 Direct Bilirubin < 0.2 GGT 87 H AST 28 ALT 34 Alkaline Phosphatase 82 Lactate Dehydrogenase 161 C-Reactive Protein Total Protein 7.8 Albumin 3.2 Globulin 4.6 H Albumin/Globulin Ratio 0.7 L Triglycerides 230 H Procalcitonin Vancomycin Trough 32.8 H* Random Vancomycin Vancomycin Dose Vanco Last Dose Time 07/24/18 03:21 Total Counted 100 Seg Neutrophils % 63 Band Neutrophils % 2 Lymphocytes % 27 Monocytes % (Manual) 2 Eosinophils % (Manual) 6 Platelet Estimate Normal RBC Morphology Abnorm A Anisocytosis 1+ A ESR Sodium Potassium Chloride Carbon Dioxide Anion Gap BUN Creatinine GFR Calculation Glucose Uric Acid Calcium Phosphorus Magnesium Total Bilirubin Direct Bilirubin GGT AST ALT Alkaline Phosphatase Lactate Dehydrogenase C-Reactive Protein Total Protein Albumin Globulin Albumin/Globulin Ratio Triglycerides Procalcitonin Vancomycin Trough Random Vancomycin Vancomycin Dose Vanco Last Dose Time Preliminary micro results at discharge 07/22/18 17:14 Blood Culture - Preliminary Blood 07/22/18 17:02 Blood Culture - Preliminary Blood 07/23/18 05:11 Urine Culture - Preliminary Urine - Clean Void [facility] - DS: A/P - Patient/Caregiver Discharge Instructions Activity: increase activity as tolerated Diet: Consistent Carbohydrate Prescriptions: Amoxicillin/Potassium Clav [Augmentin] 875 mg PO Q12H #10 tab - Follow up Plan Follow up with: Shay Johnson MD [Primary Care Provider] - Disposition: Home, Self-Care Prognosis: Fair Rehab Potential: Fair Medical - DS: Qual - VTE Deep Vein Thrombosis/Pulmonary Embolism Present on Admission: No
[2018-07-25] MEDS: CYANOCOBALAMIN (VITAMIN B-12) 500 MCG TABLET PO SCH (08:11)
[2018-07-25] MEDS: POTASSIUM CHLORIDE 10 MEQ TABLET PO SCH (08:12)
[2018-07-25] MEDS: INSULIN GLARGINE, HUMAN 1 UNIT/0.01 ML SQ SCH (08:12)
[2018-07-25] MEDS: GABAPENTIN 300 MG CAPSULE PO SCH (08:12)
[2018-07-25] MEDS: HEPARIN 5,000 UNIT/ML VIAL SQ SCH (08:12)
[2018-07-25] MEDS: INSULIN LISPRO 1 UNIT/0.01 ML UNIT SQ SCH ×2 (08:12→11:58)
[2018-07-25] MEDS: DOCUSATE SODIUM 100 MG CAPSULE PO SCH (08:12)
[2018-07-25] MEDS: FLUTICASONE HFA 110MCG INHALER INH SCH (08:13)
[2018-07-25] MEDS ORDERED: sitaGLIPtin 100 MG TABLET PO SCH (09:00)
[2018-07-25] MEDS ORDERED: VANCOMYCIN 1,500 MG in 0.9 % SODIUM CHLORIDE 500 ML IV SCH (09:00)
[2018-07-25] MEDS ORDERED: MULTIVIT,THER IRON,CA,FA & MIN 1 TABLET PO SCH (09:00)
[2018-07-25] MEDS ORDERED: ASPIRIN 81 MG TAB.CHEW PO SCH (09:00)
== END 2018-07-25 12:40 | disposition home or self-care (01) | DRG 871 ==
LOC: ED 14:44 → ICU 20:20 → MEDSUR 07-24 16:45
PROVIDERS: ADMIT Internal Medicine; ATTEND Internal Medicine